=== PATIENT | female | born 1935 | race Caucasian/White ===

== ENCOUNTER 2021-06-17 08:21 | Outpatient (CLI) | payer MEDICARE, SELFPAY ==
--- NOTE | ~2021-06-17 | XR_ITS ---
XR chest 2V 06/17/2021 09:23 Indication: Shortness of breath with exertion Procedure: PA and lateral views of the chest Comparison: 06/11/2016 Findings: Calcified granuloma right lower lobe. There is atherosclerosis. The lungs are hyperinflated which is consistent with, but not diagnostic of chronic obstructive pulmonary disease. No focal air space disease, pulmonary edema, pleural effusion or suspected pneumothorax. Impression: 1: No acute cardiopulmonary disease. Reviewed, dictated and finalized at location A. Impression: 1: No acute cardiopulmonary disease.
--- NOTE | 2021-06-17 14:09 | WPDPFTINT ---
PFT Procedure Performed PFT Procedure Performed Plethysmography (Lung Vol) Diffusing Cap (DLCO) Flow Vol Loop Spirometry w/o Bronchodil PFT Interpretation This is a pulmonary function test with spirometry, plethysmography and diffusing capacity. The test was performed and results interpreted in accordance with the 2019 and 2005 ATS/ERS Task Force guidelines respectively using the Global Lung Function Initiative-2012 reference equations. Patient demonstrated good effort and cooperation. Reproducibility criteria were met. The quality of the spirometry maneuver was Grade B. Findings: Spirometry: The contour the inspiratory and expiratory flow tracing are normal. The FVC is 2.55 L, 98% predicted. The FEV1 is 1.90 L, 98% predicted. The FEV1: FVC ratio 74%. Plethysmography: The total lung capacity is 5.66 L, 105% predicted. The functional residual capacity is 3.36 L, 107% predicted. The residual volume is 2.78, 107% predicted. Diffusion capacity: The diffusion capacity unadjusted for hemoglobin and carboxyhemoglobin is 15.0, 76% predicted. The diffusing capacity adjusted for alveolar volume is 3.37, 85% predicted. Impression: The spirometry is normal without evidence of an obstructive abnormality. The lung volumes are normal. The diffusing capacity is normal. There are no prior studies for comparison
== END 2021-06-17 08:22 | disposition home or self-care (01) ==
PROVIDERS: PCP Internal Medicine; Visit Provider Nurse Practitioner
DX: R06.00 Dyspnea, unspecified (principal); R06.02 Shortness of breath
CPT/HCPCS: 71046; 94375; 94726; 94729

== ENCOUNTER 2022-01-24 10:22 | Emergency (ER) | payer MEDICARE, SELFPAY ==
--- NOTE | ~2022-01-24 | XR_ITS ---
XR chest 2V 01/24/2022 10:56 Indication: Cough. Flu. Procedure: 2 view chest Comparison: 06/17/2021 Findings: Heart size normal. Calcified granuloma present in the right lower lobe. There is bibasilar atelectasis. No focal pneumonia, edema, pleural effusion or pneumothorax. There is atherosclerosis an d ectasia of the aorta. Impression: 1: No acute cardiopulmonary disease. Reviewed, dictated and finalized at location A. Impression: 1: No acute cardiopulmonary disease.
[2022-01-24 10:33] VITALS: BP 177/93; PULSE 71; RESP 18; TEMP 36.4; O2SAT 99
--- NOTE | 2022-01-24 10:33 | ED.URI ---
HPI - URI/Sore Throat General Chief Complaint: Upper Respiratory Infection Stated Complaint: Coughing Time Seen by Provider: 01/24/22 10:23 Source: patient Mode of arrival: ambulatory Limitations: no limitations History of Present Illness HPI Narrative: Mr. Carmichael is a 86-year-old female patient presenting to clinic today with complaints of productive cough since Tuesday morning. She reports that she is also feeling weak. Has coughing congestion bringing up yellow phlegm. She denies being a smoker. She denies any history of COPD or asthma. States that she just got her COVID booster and influenza vaccine 2 weeks ago. She does feel short of breath at times MD elicited complaint: sore throat and nasal congestion Related Data Home Medications Medication Instructions Recorded Confirmed magnesium oxide 250 mg PO DAILY 05/26/21 01/24/22 calcium carbonate 600 mg-vitamin 1 tablet PO DAILY 12/02/21 01/24/22 D3 20 mcg (800 unit) chewable tablet (Caltrate 600 plus D) [id number] tablet 1 tablet PO DAILY 12/02/21 01/24/22 Allergies Allergy/AdvReac Type Severity Reaction Status Date / Time amlodipine AdvReac Rash Verified 01/24/22 10:24 Review of Systems Review of Systems: Pertinent positives per HPI. Patient denies any fever, chills, rash, headache, visual changes, dizziness, shortness of breath, chest pain, palpitations, nausea, vomiting, diarrhea, constipation, abdominal pain, or any urinary issues. [facility] Past Medical History Medical History Chronic GERD Surgical History Surgical History History of appendectomy Hx of tonsillectomy Family History Family History Father Alcohol abuse Mother Diabetes mellitus Hypertension Social History Social History Smoking status: Never smoker Alcohol intake: current Drinks per week: 1 Alcohol use details: [place] Substance use: never Substance use type: does not use Gender identity (if verbalized by the patient): Female Agree to blood products: Yes Comments At the time of my signature, I reviewed and agree with the nursing past medical, surgical, social, and family history. There is no relevant family history pertinent to the patient complaint. Exam Narrative: General: Well-developed, well nourished, in no apparent distress Head: Normocephalic, atraumatic Eyes: Pupils equally round and reactive to light bilaterally, EOM intact, sclera and conjunctive clear, no discharge, lids normal Ears: TMs intact and clear, ear canals clear, no drainage, grossly hearing normal. Nose: Nares patent, no discharge, no inflammation, no sinus tenderness. Mouth: Oral pharynx without lesions or masses, good dentition, MMM. Neck: Supple, trachea midline, no enlargement of anterior or posterior cervical nodes, no thyroid masses or goiter palpable. Cardio: Regular rate and rhythm, s1 and s2 normal, no murmur appreciated. Resp: expiratory wheezing over the right posterior lung hardin, no rhonchi, rales, or rubs Course Course Emergency Course: Portions of this record may have been created with voice recognition software. Level of Care: Express Care Visit Vital Signs Vital signs: Vital Signs Temperature 36.4 C 01/24/22 10:33 Pulse Rate 71 01/24/22 10:33 Respiratory Rate 18 01/24/22 10:33 Blood Pressure 177/93 H 01/24/22 10:33 Pulse Oximetry 99 01/24/22 10:33 Oxygen Delivery Room Air 01/24/22 10:33 Temperature 36.4 C 01/24/22 10:33 Pulse Rate 71 01/24/22 10:33 Respiratory Rate 18 01/24/22 10:33 Blood Pressure 177/93 H 01/24/22 10:33 Pulse Oximetry 99 01/24/22 10:33 Oxygen Delivery Room Air 01/24/22 10:33 Vital signs reviewed
== END 2022-01-24 11:14 | disposition home or self-care (01) ==
PROVIDERS: Emergency Provider Nurse Practitioner Family; PCP Internal Medicine
DX: J10.1 Influenza due to other identified influenza virus with other respiratory manifestations (principal); J40 Bronchitis, not specified as acute or chronic; Z20.822 Contact with and (suspected) exposure to COVID-19; K21.9 Gastro-esophageal reflux disease without esophagitis
CPT/HCPCS: 71046; 87426; 87804; 99213; C9803; G0463

== ENCOUNTER 2022-05-27 08:57 | Inpatient (IN) | payer MEDICARE, SELFPAY ==
[2022-05-27] VITALS (22 sets, daily range): BP systolic 148–196; BP diastolic 86–132; PULSE 79–134; RESP 14–24; TEMP 36.8–37.2; O2SAT 93–98; BMI 25.1
--- NOTE | ~2022-05-27 | US_ITS ---
EXAMINATION: US thyroid DATE: 05/27/2022 15:57 INDICATION: Goiter. TECHNIQUE: Multiple ultrasound images of the thyroid were obtained. COMPARISON: None. FINDINGS: The right thyroid lobe measures 4.9 x 2.0 x 2.5 cm. The left thyroid lobe measures 4.1 x 1.4 x 1.6 c m. The thyroid demonstrates heterogeneous echogenicity. Vascularity is normal. In the right thyroid lobe, there is a 2.7 cm solid, hypoechoic, wider than tall nodule with smooth margin without echogeni c foci (TI-RADS TR4). IMPRESSION: 1. Right thyroid nodule. Consider ultrasound-guided fine-needle aspiration if indicated given the pat ient's age. Reviewed, dictated and finalized at location A. IOLOGY PHYSICIAN ASSISTANT IMPRESSION: 1. Right thyroid nodule. Consider ultrasound-guided fine-needle aspiration if i ndicated given the patient's age.
--- NOTE | ~2022-05-27 | MR_ITS ---
EXAMINATION: MR brain/brain stem wo con DATE: 05/27/2022 15:38 INDICATION: Cerebrovascular accident. TECHNIQUE: Magnetic resonance imaging (MRI) of the brain and brainstem was performed without intraven ous contrast. COMPARISON: Head CT 05/27/2022 FINDINGS: There are acute infarcts in the left cerebellum, left side of the rosalio, occipital lobes, an d right thalamus. There is no intracranial hemorrhage or abnormal mass lesion. There are scattered ar eas of nonspecific increased T2-weighted signal intensity in the cerebral white matter. The ventricle s are normal in size. There is mild mucosal thickening in the ethmoid sinuses. There are likely muir es of ocular lens replacement surgeries. The mastoid air cells are normal. IMPRESSION: 1. Acute infarcts involving the left cerebellum, rosalio, occipital lobes, and right thalamus. 2. Moderate nonspecific cerebral white matter disease, which likely represents chronic small vessel i schemic disease. Reviewed, dictated and finalized at location A. IFIED PATHOLOGY ASSISTANT IMPRESSION: 1. Acute infarcts involving the left cerebellum, rosalio, occipital lobes, and rig ht thalamus. 2. Moderate nonspecific cerebral white matter disease, which likely represents chronic small vessel ischemic disease.
--- NOTE | ~2022-05-27 | CT_ITS ---
EXAMINATION: CT brain wo con DATE: 05/27/2022 09:38 INDICATION: Altered mental status TECHNIQUE: Computed tomography (CT) of the head was performed without intravenous contrast. The dose- length product was 605.33 mGy-cm. Automated exposure control and iterative reconstruction technique w ere employed. COMPARISON: None FINDINGS: There is a right occipital lobe infarction, age indeterminate. Consider correlation with MR I. Generalized atrophy. There are scattered moderate periventricular and subcortical white matter guerda nges, most likely related to small vessel ischemic disease (microangiopathy). No ventriculomegaly or midline shift. There is intracranial atherosclerosis. No acute intracranial hemorrhage, mass or signi ficant mass effect. Small chronic left cerebellar infarction. Paranasal sinuses and mastoids are pneu matized. No depressed skull fractures. IMPRESSION: 1. Age-indeterminate right occipital lobe infarction. Consider correlation with MRI. 2: Chronic left cerebellar infarction. 3: Chronic age-related findings. Reviewed, dictated and finalized at location L. ICAL ETCH OPERATOR
--- NOTE | ~2022-05-27 | CT_ITS ---
EXAMINATION: CTA brain carotid DATE: 05/27/2022 10:11 INDICATION: Occipital infarct. TECHNIQUE: Computed tomographic angiography (CTA) of the head was performed with 100 mL Omnipaque-350 intravenous contrast. CTA of the neck was performed with intravenous contrast. Automated exposure co ntrol and iterative reconstruction technique were employed. The dose-length product was 1041.85 mGy-c m. Maximum intensity projection and volume rendered 3D-reconstructions were created by the technCHEQROOMi st on a separate workstation. COMPARISON: Head CT 05/27/2022, chest CT 11/08/2005 FINDINGS: HEAD CTA: There is a small old infarct in left cerebellum. There is an infarct in right occipital lob e. There are scattered areas of low attenuation in the cerebral white matter. There is no intracrania l hemorrhage or abnormal mass lesion. The ventricles are normal in size. There is mucosal thickening in the paranasal sinuses. There are likely changes of ocular lens replacement surgeries. The mastoid air cells are normal. Left vertebral artery is dominant. There is no significant stenosis of basilar artery or the posterior cerebral arteries. There is no significant stenosis of the intracranial inter nal carotid arteries or anterior or middle cerebral arteries. Anterior communicating artery is normal . There is no aneurysm. The posterior communicating arteries are normal. NECK CTA: There is mild scarring at the lung apices. There are nodules in the thyroid measuring up to 1.9 cm. There are no pathologically enlarged lymph nodes. There is moderate stenosis of proximal lef t vertebral artery. There is plaque in the proximal internal carotid arteries. There is 0% stenosis o f the proximal right internal carotid artery relative to normal distal artery lumen diameter (NASCET criteria). There is 0% stenosis of the proximal left internal carotid artery relative to normal dista l artery lumen diameter. There is mild cervical spondylosis. IMPRESSION: 1. Infarct in right occipital lobe, likely acute or subacute. 2. 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 3. Moderate nonspecific cerebral white matter disease, which likely represents chronic small vessel i schemic disease. 4. No aneurysm or significant intracranial arterial stenosis. 5. 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 6. 0% stenosis of the proximal internal carotid arteries relative to normal distal artery lumen diame ters (NASCET criteria). 7. Multinodular goiter with worsening from 11/08/2005. Given the patient's age, further evaluation wit h ultrasound may not be needed. Reviewed, dictated and finalized at location A. EO EQUIPMENT INSTALLER IMPRESSION: 1. Infarct in right occipital lobe, likely acute or subacute. 2. 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 3. Moderate nonspecific cerebral white matter disease, which likely represents chronic small vessel ischemic disease. 4. No aneurysm or significant intracranial arterial stenosis. 5. 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 6. 0% stenosis of the proximal internal carotid arteries relative to normal dis deidra artery lumen diameters (NASCET criteria). 7. Multinodular goiter with worsening from 11/08/2005. Given the patient's age, further evaluation with ultrasound may not be needed.
--- NOTE | 2022-05-27 09:09 | ECG_ITS ---
Measurements Intervals [place] Rate: 124 P: NM: 0 QRS: 16 QRSD: 99 T: 253 QT: 262 QTc: 377 Interpretive Statements ATRIAL FIBRILLATION WITH RAPID VENTRICULAR RESPONSE ST-T WAVE ABNORMALITY IN ANTEROLAT/INF LEADS- CONSIDER ISCHEMIA ABNORMAL ECG NO PREVIOUS ECG AVAILABLE FOR COMPARISON Electronically Signed On 05-27-2022 9:47:38 HAND CLOTH FOLDER by Tushar Brooks D.O.
[2022-05-27 09:15] LABS: Glucose Point of Care 119 mg/dl (65-105)
--- NOTE | 2022-05-27 09:18 | ED.GENADULT ---
HPI - General Adult General Chief complaint: Altered Mental Status Stated complaint: was altered; Afib? HR up 140s Time Seen by Provider: 05/27/22 09:02 History of Present Illness HPI narrative: 86-year-old female presenting to the emergency department via EMS for evaluation of feeling off. Patient states that she went to bed last night and felt normal. Patient reports he normally gets up at 6 AM but woke up at 8 AM. Patient was talking to a family member and they felt that she was confused so they called EMS. Patient does report that she does have some vision changes and feels confused. Patient denies any chest pain or shortness of breath. Patient denies any nausea vomiting or diarrhea. Patient was found to be in atrial fibrillation and has no prior history of atrial fibrillation. Patient has no prior history of stroke or [place]. Patient does have history of hypertension and high cholesterol. Related Data Home Medications Medication Instructions Recorded Confirmed magnesium oxide 250 mg PO DAILY 05/26/21 05/27/22 calcium carbonate 600 mg-vitamin 1 tablet PO DAILY 12/02/21 05/27/22 D3 20 mcg (800 unit) chewable tablet (Caltrate 600 plus D) [id number]-wvyuoruf-[id number] tablet 1 tablet PO DAILY 12/02/21 05/27/22 atorvastatin 80 mg tablet 80 mg PO DAILY 05/27/22 05/27/22 methylcellulose (laxative) 500 mg 500 mg PO DAILY PRN Constipation 05/27/22 05/27/22 tablet (Citrucel) Allergies Allergy/AdvReac Type Severity Reaction Status Date / Time amlodipine AdvReac Rash Verified 05/27/22 09:42 Review of Systems Review of Systems: CONSTITUTIONAL: Denies fever, chills, or sweats. EYES: Denies visual changes, redness, or discharge. ENT: Denies rhinorrhea, congestion, sore throat, or otalgia. CARDIOVASCULAR: Denies chest pain, palpitations, or edema. RESPIRATORY: Denies cough or dyspnea. GASTROINTESTINAL: Denies abdominal pain, nausea, vomiting, or diarrhea. GENITOURINARY: Denies dysuria or hematuria. SKIN: Denies rash or itching. MUSCULOSKELETAL: Denies back pain, joint pain, or myalgia. NEUROLOGIC: See HPI [facility] Past Medical History Medical History (Updated 05/27/22 @ 19:21 by Darren Marti MD) Chronic GERD Goiter Hyperlipidemia Hypertension Occipital infarction Surgical History Surgical History (Updated 05/27/22 @ 14:37 by Kateryna Flores NP) H/O cataract extraction History of appendectomy History of carpal tunnel release Hx of tonsillectomy Family History Family History (Updated 05/27/22 @ 14:38 by Kateryna Flores NP) Father Alcohol abuse Heart disease Mother Diabetes mellitus Hypertension Social History Social History (Updated 05/27/22 @ 14:38 by Kateryna Flores NP) Social History: the patient is and lives home alone. She is pretty functional does not use any assisted devices such as a cane or walker. She walks independently. 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 Code status full code Smoking status: Never smoker Alcohol intake: current Drinks per week: 9 Alcohol use details: [place] Substance use: never Substance use type: does not use Lack of Transportation: No Lack of Food: Never True Current Housing: I Have Housing Concerned About Future Housing: No Difficulty Paying Gas/Electric Bills: No Difficulty Paying for Meds: No Currently Unemployed: No Education: High School Diploma/GED Difficulty w/ Childcare or Family Care: No Gender identity (if verbalized by the patient): Female Spiritual care concerns: No (christianity) Agree to blood products: Yes Exam Narrative: APPEARANCE: Well appearing, no pain, no distress, well-nourished. HEAD: normocephalic, atraumatic. EYES: PERRLA/EOMI, conjunctivae clear. NOSE: Normal no drainage NECK: Supple. No adenopathy, no masses. RESPIRATORY: Airway patent, respirations nonlabored. Clear to auscultation bilaterally, no rales, rhonchi, wheezing. CARDIOVASCULA
[2022-05-27 09:40] LABS: Basophils Absolute Auto 0.1 K/mm3 (0.0-0.1); Basophils Percent Auto 0.5 % (0.2-1.2); Eosinophils Percent Auto 0.2 % (0-4.4); Hematocrit 47.1 % (37.0-47.0); Hemoglobin 15.9 g/dL (12.0-15.0); Immature Granulocyte Absolute 0.06 K/mm3 (0.00-0.031); Immature Granulocyte Percent A 0.6 % (0-0.5); Lymphocytes Percent Auto 9.3 % (18.3-44.2); Mean Corpuscular HGB Conc 33.8 g/dl (32-36); Mean Corpuscular Hemoglobin 32.2 pg (26-34); Mean Corpuscular Volume 95.3 fl (80-100); Mean Platelet Volume 9.9 fl (7.4-10.4); Monocytes Absolute Auto 0.9 K/mm3 (0.1-0.6); Neutrophils Absolute Auto 8.8 K/mm3 (1.3-6.7); Neutrophils Percent Auto 81.4 % (45.5-73.1); Platelet Count Result 169 k/mm3 (150-375); Red Blood Count 4.94 M/mm3 (4.2-5.4); Red Cell Distribution Width 12.6 % (11.5-14.5); White Blood Count 10.8 K/mm3 (4.5-10.0)
[2022-05-27] MEDS: METOPROLOL TARTRATE INJ 5 MG/5 ML VIAL IV PUSH (09:41)
[2022-05-27 09:51] LABS: Alanine Aminotransferase 34 U/L (6-35); Albumin Level 4.9 g/dL (3.5-5.1); Alkaline Phosphatase 76 U/L (38-126); Anion Gap 12 mmol/L (8-16); Aspartate Amino Transferase 42 U/L (14-36); Bilirubin,Total 2.1 mg/dL (0.2-1.3); Blood Urea Nitrogen 15 mg/dL (7-17); Calcium 9.5 mg/dL (8.4-10.2); Carbon Dioxide 21 mmol/L (22-30); Chloride 97 mmol/L (98-107); Estimated CRCL calculation 54 ml/min; Estimated Glomerular Filt Rate > 60; Glucose 125 mg/dL (65-110); Potassium 4.2 mmol/L (3.4-5.0); Sodium 130 mmol/L (137-145)
[2022-05-27 09:52] LABS: INR 1.1; Prothrombin Time 13.7 Seconds (11.1-14.7)
[2022-05-27 09:53] LABS: Partial Thromboplastin Time 28.2 SECONDS (22.3-36.8)
[2022-05-27 10:03] LABS: Troponin I 0.015 ng/mL (0.000-0.034)
[2022-05-27 10:03] LABS: Appearance Urine Clear (Clear); Bacteria Urine None Seen /hpf; Bilirubin Urine 1+ (Negative); Blood Urine Negative (Negative); Color Urine Dark Yellow (Yellow); Glucose Urine UA Negative (Negative); Granular Casts Urine Present /lpf; Ketones Urine 1+ mg/dL (Negative); Leukocyte Esterase Ur Negative LEU/UL (Negative); Mucus Urine Present /lpf; Nitrate Urine Negative (Negative); Protein Urine 1+ mg/dL (Negative); Squamous Epithelial Cell Urine None seen /hpf (Few); WBC Urine 0-5 /hpf; pH Urine 5.5 (5.0-9.0)
[2022-05-27 10:06] LABS: Add Urine Microscopic? YES
[2022-05-27 10:23] LABS: Influenza A QL RT-PCR Negative (Negative); Influenza B QL RT-PCR Negative (Negative); RSV RNA, RT-PCR Negative (Negative); SARS-CoV-2 RNA PCR Negative
--- NOTE | 2022-05-27 10:23 | PC.NURSE ---
Pt voided 75 ml on bed rodriguez.
[2022-05-27] MEDS: METOPROLOL TARTRATE 12.5 MG TABLET PO (11:26)
--- NOTE | 2022-05-27 12:15 | ADMGEN ---
This patient, Lenora Vann, was admitted to IMU Room 205-01. Patient/family oriented to hospital policies and general routines including ID bracelet, bed and alarms, visiting hours, pain management, procedures, bathroom and other care routines, personal items, smoking policy, room service/diet, and visiting hours. Information on how to activate the Rapid Response Team has been discussed. Patient/Family are encouraged to report perceived risks to care and to ask questions if they do not understand what they are told or what they should do.
[2022-05-27] MEDS: ASPIRIN 81 MG CHEWABLE TABLET 324 MG PO (13:03)
--- NOTE | 2022-05-27 13:32 | PM.IMHP ---
H&P: HPI History of Present Illness Date/Time: 05/27/22 13:32 Chief Complaint: Altered mental status Narrative: this is an 86-year-old female patient who lives home alone in her own home. She has a history of hypertension and hyperlipidemia. She has no prior history of any CVAs or irregular heart rate. Her son stated that she was having difficulty with her left eye peripheral vision today and that she was leaning to her left side. The patient was also having difficulty remembering names of common ordinary every day things. When I assessed her she was able to answer questions for me. She was able to recognize 2 of her children. However she was having difficulty with the date and The name of the current president. Her temperature is 99? and her heart rate was 123. Her initial blood pressure was 196/113. The patient tells me that she typically takes 100 of metoprolol in the morning and 50 at night. The patient is unsure if she took her medications today. Her EKG was read as atrial fibrillation with rapid ventricular response with a heart rate of 124. Her white count was noted to be 10.8. H&H 15.9 and 47.1. Sodium is 130. Her blood sugars 125. Total bilirubin 2.1. The patient had 1+ protein and 1+ ketones and 1+ urine bilirubin in her urine however her urine was negative for any infectious process. The patient was found to be negative for influenza A/B RSV and COVID. Head and neck CTA was read as the following1. Infarct in right occipital lobe, likely acute or subacute. 2. 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 3. Moderate nonspecific cerebral white matter disease, which likely represents chronic small vessel ischemic disease. 4. No aneurysm or significant intracranial arterial stenosis. 5. 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 6. 0% stenosis of the proximal internal carotid arteries relative to normal distal artery lumen diameters (NASCET criteria). 7. Multinodular goiter with worsening from 11/08/2005. Given the patient's age, further evaluation with ultrasound may not be needed. the patient was ordered aspirin and p.o. metoprolol. Neurology has been consulted. The patient is being admitted to inpatient status on the date of service of 05/27/2022. Review of Systems Review of Systems: She HPI All systems reviewed & are unremarkable except as noted in HPI and below Constitutional: Constitutional: Reports as per HPI and Reports no additional constitutional complaints Eyes: Eyes: Reports as per HPI and Reports no additional eye complaints ENT: Reports system reviewed and no additional complaints, except as documented and Reports Normal hearing present Cardiovascular: Cardiovascular: Reports no additional cardiovascular complaints Respiratory: Respiratory: Reports no additional respiratory complaints and Reports no additional respiratory complaints Gastrointestinal: Gastrointestinal: Reports as per HPI and Reports no additional gastrointestinal complaints Musculoskeletal: Musculoskeletal: Reports no additional musculoskeletal complaints Integumentary/Breasts: Skin/Breast: Reports system reviewed and no additional complaints, except as docu and Reports as per HPI Neurologic: Reports system reviewed and no additional complaints, except as documented, Reports as per HPI and Reports Normal hearing present Psychiatric: Psychiatric: Reports no additional psychiatric complaints and Reports as per HPI Endocrine: Endocrine: Reports no additional endocrine complaints Hematologic/Lymphatic: Hematologic/Lymphatic: Reports no additional hematologic/lymphatic complaints Allergic/Immunologic: Allergic/Immunologic: Reports no additional allergic/immunologic complaints PMF Past Medical History Medical History (Updated 05/27/22 @ 14:58 by Kateryna Flores NP) Chronic GERD Goiter Hyperlipidemia Hypertension Occipital infarction Surgical History Surgical History (Updated 05/27/22 @ 14:37 by Kateryna Flores NP) H
[2022-05-27] MEDS: hydrALAZINE HCL 20 MG/ML VIAL 10 MG IV PUSH ×2 (15:00→17:47)
--- NOTE | 2022-05-27 15:27 | PC.NURSE ---
patient removed from monitor to go to MRI without nurse.
--- NOTE | 2022-05-27 16:32 | PCSTNOTE ---
Please refer to the Bedside Swallow Evaluation in the EMR. Please note, silent aspiration cannot be ruled out at bedside.
[2022-05-27] MEDS: METOPROLOL TARTRATE 50 MG TAB PO (21:04)
[2022-05-28] VITALS (15 sets, daily range): BP systolic 155–165; BP diastolic 71–110; PULSE 77–108; RESP 16–20; TEMP 35.8–36.9; O2SAT 65–98
--- NOTE | 2022-05-28 | ECHO_ITS ---
Patient Info Name: Lenora Vann Age: 86 years : 1935 Gender: Female Ht: 66 in Wt: 159 lbs BSA: 1.84 m2 HR: 109 bpm BP: 169 / 94 mmHg Heart Rhythm: Sinus Rhythm Technical Quality: Fair Exam Date: 05/28/2022 9:15 AM Exam Location: [facility] Patient Status: Inpatient Admit Date: 05/27/2022 Staff Ordering Physician: Kateryna Flores NP Fur Dry Cleaner: Ele Loya RDCS Attending Provider: Char Brandon MD Referring Physician: Mark SMART; Exam Type: CA echo doppler w bubble study Study Info Indications - CVA Complete two-dimensional, color flow and Doppler transthoracic echocardiogram is performed with agitated saline. Contrast/Agitated Saline Contrast/Ag. Saline: Agitated Saline Amount: 20.00 ml Administered By: Ele Loya RDCS Existing IV Access: Yes IV Access Condition: patent with no signs of infiltration Summary 1. Concentric left ventricular hypertrophy with vigorous systolic contractility. 2. Significant biatrial dilation. 3. Small amount of mitral tricuspid and pulmonic valve regurgitation. 4. Normal sinus rhythm during this exam. 5. Agitated saline contrast injection demonstrates no intracardiac shunt. Left Ventricle Left ventricular chamber dimension is normal. Left ventricular systolic function is hyperdynamic, estimated at >70%. There is moderate concentric increased left ventricular wall thickness. The left ventricular diastolic function is grade I diastolic dysfunction. Right Ventricle Right ventricular chamber dimension is normal. Left Atria Left atrial chamber dimension is severely enlarged. Right Atria Right atrial chamber dimension is severely enlarged. Atrial Septum Intact interatrial septum visualized by agitated saline imaging. Aortic Valve The aortic valve is trileaflet. There is mild aortic valve sclerosis. Pulmonic Valve The pulmonic valve is normal. There is trace pulmonic regurgitation. Mitral Valve The mitral valve has normal leaflets. There is mild mitral valve regurgitation. Tricuspid Valve The tricuspid valve leaflets are normal. There is mild tricuspid valve regurgitation. Pericardium/Pleural The pericardium appears normal. Aorta The aortic root size at the sinus of Valsalva is normal. Left Ventricular Outflow Tract Name Value Normal LVOT 2D LVOT Diameter 1.9 cm LVOT Doppler LVOT Peak Gradient 2 mmHg LVOT Mean Gradient 1 mmHg LVOT VTI 14 cm LVOT VTI/AV VTI Ratio 0.7 LVOT Stroke Volume 40 ml LVOT CO 2.7 l/min LVOT CI 1.5 l/min/m2 Pulmonic Valve Name Value Normal RVOT Doppler
[2022-05-28 04:30] LABS: Basophils Absolute Auto 0.1 K/mm3 (0.0-0.1); Basophils Percent Auto 0.6 % (0.2-1.2); Eosinophils Absolute Auto 0.1 K/mm3 (0-0.3); Hematocrit 41.2 % (37.0-47.0); Hemoglobin 14.1 g/dL (12.0-15.0); Immature Granulocyte Absolute 0.05 K/mm3 (0.00-0.031); Immature Granulocyte Percent A 0.5 % (0-0.5); Lymphocytes Absolute Auto 1.05 K/mm3 (0.9-3.2); Lymphocytes Percent Auto 10.6 % (18.3-44.2); Mean Corpuscular HGB Conc 34.2 g/dl (32-36); Mean Corpuscular Volume 93.6 fl (80-100); Monocytes Absolute Auto 1.1 K/mm3 (0.1-0.6); Monocytes Percent Auto 10.6 % (2.6-8.5); Neutrophils Absolute Auto 7.6 K/mm3 (1.3-6.7); Neutrophils Percent Auto 76.7 % (45.5-73.1); Platelet Count Result 160 k/mm3 (150-375); Red Cell Distribution Width 12.5 % (11.5-14.5); White Blood Count 9.9 K/mm3 (4.5-10.0)
[2022-05-28 04:42] LABS: Lactic Acid Reflex 0.9 mmol/L (0.7-2.0)
[2022-05-28 04:43] LABS: Alanine Aminotransferase 29 U/L (6-35); Alkaline Phosphatase 64 U/L (38-126); Anion Gap 8 mmol/L (8-16); Aspartate Amino Transferase 33 U/L (14-36); Bilirubin,Total 2.1 mg/dL (0.2-1.3); Blood Urea Nitrogen 15 mg/dL (7-17); Calcium 8.7 mg/dL (8.4-10.2); Carbon Dioxide 24 mmol/L (22-30); Chloride 100 mmol/L (98-107); Estimated CRCL calculation 54 ml/min; Estimated Glomerular Filt Rate > 60; Glucose 102 mg/dL (65-110); Lipase 49 U/L (23-300); Potassium 3.5 mmol/L (3.4-5.0); Sodium 132 mmol/L (137-145)
--- NOTE | 2022-05-28 07:56 | ECG_ITS ---
Measurements Intervals [place] Rate: 76 P: IA: 0 QRS: 13 QRSD: 104 T: -1 QT: 416 QTc: 470 Interpretive Statements ATRIAL FIBRILLATION BORDERLINE ST-T WAVE ABNORMALITY- DIFFUSE LEADS ABNORMAL ECG COMPARED TO ECG 05/27/2022 09:10:35 HEART RATE HAS DECREASED ST-T WAVE ABNORMALITY HAS IMPROVED Electronically Signed On 05-28-2022 11:58:25 [employer] PIPE OFFBEARER by Tushar Brooks D.O.
[2022-05-28] MEDS: ASPIRIN 325 MG ENTERIC TABLET PO (08:38)
[2022-05-28] MEDS: METOPROLOL TARTRATE 50 MG TAB 100 MG PO (08:38)
[2022-05-28] MEDS: OPTI-GEN TAB 1 TABLET PO (08:38)
--- NOTE | 2022-05-28 10:08 | WPDNEURCNPN ---
Assessment and Plan Assessment and plan (1) Acute stroke due to ischemia: Code(s): I63.9 - Cerebral infarction, unspecified Status: Acute (2) Atrial fibrillation: Qualifiers: Atrial fibrillation type: unspecified Qualified Code(s): I48.91 - Unspecified atrial fibrillation Code(s): I48.91 - Unspecified atrial fibrillation Status: Acute (3) Hyperlipidemia: Qualifiers: Hyperlipidemia type: unspecified Qualified Code(s): E78.5 - Hyperlipidemia, unspecified Code(s): E78.5 - Hyperlipidemia, unspecified Status: Acute (4) Hypertension: Qualifiers: Hypertension type: essential hypertension Qualified Code(s): I10 - Essential (primary) hypertension Code(s): I10 - Essential (primary) hypertension Status: Acute Plan Lenora Vann is a 86 year old female with a history of hypertension and hyperlipidemia presenting due to vision changes. MRI brain showed multifocal infarcts, suggestive of cardioembolic etiology of stroke. She was found to be in atrial fibrillation on presentation. - Will need to start anticoagulation - Eliquis 5mg BID - Continue Lipitor 80mg daily - Surface echocardiogram is pending Consult date: 05/28/22 Reason for consult: Acute stroke HPI: Lenora Vann is a 86 year old female with a history of hypertension and hyperlipidemia presenting due to vision changes. She woke up few hours later than usual on 05/27 which is atypical for her. Patient was talking to her son and he felt she was confused. She was also having problems with her left eye peripheral vison and leaning to her right side, as well as difficulty remembering names of common things. When she presented to the emergency department, she had blood pressure in the 180s-190s systolic. Her EKG revealed atrial fibrillation with RVR. She was given metoprolol and aspirin. CT head showed subacute/acute infarct in the right occpital lob, old infarct in the left cerebellum. 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 She was rate controlled and subsequently admitted for stroke evaluation. MRI brain showed acute infarcts involving the left cerebellum, rosalio, occipital lobes, and right thalamus. Patient feels well this morning, but reporting some numbness in the left arm. Son is at bedside and feels that she is not completely back to her normal self -- (doesn't remember year). Review of Systems Constitutional: Constitutional: Reports no additional constitutional complaints Eyes: Eyes: Reports blurry vision ENT: Reports system reviewed and no additional complaints, except as documented Cardiovascular: Cardiovascular: Reports no additional cardiovascular complaints Respiratory: Respiratory: Reports no additional respiratory complaints Gastrointestinal: Gastrointestinal: Reports no additional gastrointestinal complaints Genitourinary: Genitourinary: Reports no additional female genitourinary complaints Musculoskeletal: Musculoskeletal: Reports no additional musculoskeletal complaints Integumentary/Breasts: Skin/Breast: Reports system reviewed and no additional complaints, except as docu Neurologic: Reports as per HPI Psychiatric: Psychiatric: Reports confusion PMFSH Past Medical History Medical History Chronic GERD Goiter Hyperlipidemia Hypertension Occipital infarction Surgical History Surgical History H/O cataract extraction History of appendectomy History of carpal tunnel release Hx of tonsillectomy Family History Family History Father Alcohol abuse Heart disease Mother Diabetes mellitus Hypertension Social History Social History Social Histo
[2022-05-28] MEDS: LOSARTAN POTASSIUM 100 MG TABLET PO (11:32)
[2022-05-28] MEDS: ATORVASTATIN 40 MG TABLET 80 MG PO (11:32)
[2022-05-28] MEDS: FAMOTIDINE 20 MG TABLET PO (11:32)
--- NOTE | 2022-05-28 12:26 | PM.IMPN ---
Progress Note: A&P Assessment and Plan (1) Occipital infarction: Code(s): I63.9 - Cerebral infarction, unspecified Status: Acute Assessment and Plan: Patient presents with altered mental status. She was found to have CVA by CT brain. MRI brain showing acute infarcts involving the left cerebellum, rosalio, bilateral occipital lobes and right thalamus. CTA of the head and neck shows 0% stenosis of the proximal internal carotid arteries. 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 Patient also found to have new onset atrial fibrillation. 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 Neurology was consulted and appreciate their input. Patient was started on aspirin but this is been changed to Eliquis. Echo has been ordered and is pending. Continue PT and OT. Speech therapy also to evaluate treat. (2) Atrial fibrillation: Qualifiers: Atrial fibrillation type: unspecified Qualified Code(s): I48.91 - Unspecified atrial fibrillation Code(s): I48.91 - Unspecified atrial fibrillation Status: Acute Assessment and Plan: Patient found to have new onset Afib of unknown duration. She is asymptomatic. Her heart rate is controlled with metoprolol. Echo has been ordered and is pending. TSH normal. [id number] score 6. Cardiology has been consulted. EKG on admission showing ST depression mostly in the anterior lead but seen lateral and inferior as well with HR at 124. Repeat EKG showing improvement in these ST changes. Underlying ischemia causing the AFib. Trop climbed to 0.08 but felt more likely related to the RVR. Echo pending. (3) Hypertension: Qualifiers: Hypertension type: essential hypertension Qualified Code(s): I10 - Essential (primary) hypertension Code(s): I10 - Essential (primary) hypertension Status: Acute Assessment and Plan: Patient's blood pressure was reviewed on 3/3 Blood pressure remains elevated but will allow for permissive HTN given recent CVA. Will continue current medications. (4) Hyperlipidemia: Qualifiers: Hyperlipidemia type: unspecified Qualified Code(s): E78.5 - Hyperlipidemia, unspecified Code(s): E78.5 - Hyperlipidemia, unspecified Status: Acute Assessment and Plan: LFTs normal except elevated Bili to 2.1. Probably [place]. Continue with high-dose atorvastatin (5) Chronic GERD: Code(s): K21.9 - Gastro-esophageal reflux disease without esophagitis Status: Acute Assessment and Plan: Stable. Continue with famotidine (6) Goiter: Code(s): E04.9 - Nontoxic goiter, unspecified Status: Acute Assessment and Plan: CT scan showing MNG. Thyroid ultrasound showing right thyroid nodule. Hold of on FNA at this time. TSH normal. Subjective Date/time seen: 05/28/22 12:27 Interval history: 86yo female with HTN here for altered mental status and found to have 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 She feels 'great'. Left hand feels numb and has coordination problems with the Left hand. She denies CP or SOB. No palpitations. Speech is better but not back to normal per family in the room. No odynophagia or dysphagia. Exam Narrative: AF 96.4 161/97 85 18 95% ra Gen - NARD Chest - few bibasilar crackles, nml RR CV - irregularly irregular; Tele showing AFib with controlled rate. Abd - Soft, NT/ND, Positive BS Ext - No pedal edema Neuro - Alert and oriented x3 (not year). left hand apraxia. Mild dysarthria but speech is mostly clear. CN 2-12 intact. Dysmetria involving LUE and LLE. Nonfocal exam. Psych - Nml mood and affect Skin - Warm and dry Objective Data Vital Signs Vital Signs: Vital Signs - 24 hr 05/27/22 13:54 05/27/22 12:30 05/27/22 16:00 Temperature Pulse Rate 79 Respiratory Rate Blood Pressure Pulse Oximetry Oxygen Delivery Room Air Room Air
[2022-05-28] MEDS: hydrALAZINE HCL 20 MG/ML VIAL 10 MG IV PUSH (13:31)
--- NOTE | 2022-05-28 14:07 | PCOTNOTE ---
Attempted to see pt. for occupational therapy evaluation. 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 Following
--- NOTE | 2022-05-28 14:20 | PM.CNCAR ---
Assessment and Plan Assessment and plan (1) Atrial fibrillation: Qualifiers: Atrial fibrillation type: unspecified Qualified Code(s): I48.91 - Unspecified atrial fibrillation Code(s): I48.91 - Unspecified atrial fibrillation Status: Acute Plan This is an 86-year-old lady with hypertension no previous history of atrial fibrillation presenting with what appears to be cardioembolic CVA and found to be in atrial fibrillation for the 1st time. She has reasonably well-controlled heart rate on her standard dose of metoprolol. She has been anticoagulated by the neurology operations consultant using apixaban. Echocardiogram has been performed and is pending my opportunity to read that exam little later this afternoon. This time there are no additional cardiac recommendations to make as she is otherwise Um see asymptomatic of her atrial fibrillation. After discharge I will see this lady in the office and consider the option of attempting a cardioversion down the line. Obviously that would be contraindicated at this time the setting of AFib of unknown chronicity and acute embolic CVA. Lang Nicholas MD [facility] History of Present Illness History of Present Illness Consult date/time: 05/28/22 14:20 Reason For Visit: CVA,Atrial Fib Narrative: This is an 86-year-old woman I am seeing at the request of the hospitalist because of atrial fibrillation. She is unknown to me prior to this encounter and according to the records, the patient and her family his she has no previous history of atrial fibrillation or of any other cardiac problems. She is a lady that has a history of hypertension and dyslipidemia and [place] her medical care [place]. She came to the hospital emergency room this morning because she was feeling disoriented apparently she had some problems with blurring of her vision and unsteadiness of her gait and deviating to the left. The only symptom she remembers at this time is feeling disoriented. Her evaluation thus far appears to show evidence of small strokes occurring in a multi vascular distribution and she has been found to be in atrial fibrillation. She is not aware of any symptoms of this in the way of palpitations shortness of breath chest pain orthopnea or PND. She normally takes metoprolol for rate control she did not tapped take her usual metoprolol dosage this morning and when she got here her pulse rate was in the 125 range. She has been given her metoprolol dosage and pulse rate is now in the low 90s. She appears to be very comfortable and is talking with her family when I entered the room to see her. A neurology consult and has already seen her this morning and started her on anticoagulation with apixaban 5 mg twice daily. An echocardiogram has been ordered has yet to be interpreted. Her normal medical regimen consists of atorvastatin, famotidine, losartan, metoprolol and magnesium oxide. Review of Systems Constitutional: Constitutional: Reports no additional constitutional complaints Eyes: Eyes: Reports as per HPI and Reports blurry vision ENT: Reports system reviewed and no additional complaints, except as documented Cardiovascular: Cardiovascular: Reports no additional cardiovascular complaints Respiratory: Respiratory: Reports dyspnea on exertion Gastrointestinal: Gastrointestinal: Reports no additional gastrointestinal complaints Musculoskeletal: Musculoskeletal: Reports back pain Integumentary/Breasts: Skin/Breast: Reports system reviewed and no additional complaints, except as docu Neurologic: Reports as per HPI and Reports confusion Endocrine: Endocrine: Reports no additional endocrine complaints Hematologic/Lymphatic: Hematologic/Lymphatic: Reports no additional hematologic/lymphatic complaints Allergic/Immunologic: Allergic/Immunologic: Reports no additional allergic/immunologic complaints [facility] Past Medical History Medical History (Reviewed 05/28/22 @ 12:37 by Beatriz
[2022-05-28] MEDS: APIXABAN 5 MG TABLET PO (20:20)
[2022-05-28] MEDS: METOPROLOL TARTRATE 50 MG TAB PO (20:21)
[2022-05-29] VITALS (18 sets, daily range): BP systolic 125–172; BP diastolic 74–95; PULSE 74–113; RESP 14–20; TEMP 36.2–36.3; O2SAT 94–99
[2022-05-29] MEDS: hydrALAZINE HCL 20 MG/ML VIAL 10 MG IV PUSH ×2 (05:48→17:22)
[2022-05-29] MEDS: METOPROLOL TARTRATE 50 MG TAB 100 MG PO (08:01)
[2022-05-29] MEDS: LOSARTAN POTASSIUM 100 MG TABLET PO (08:01)
[2022-05-29] MEDS: ATORVASTATIN 40 MG TABLET 80 MG PO (08:02)
[2022-05-29] MEDS: FAMOTIDINE 20 MG TABLET PO (08:02)
[2022-05-29] MEDS: OPTI-GEN TAB 1 TABLET PO (08:02)
[2022-05-29] MEDS: APIXABAN 5 MG TABLET PO ×2 (08:02→20:17)
--- NOTE | 2022-05-29 10:19 | PM.PNCARD ---
Progress Note: A&P Assessment and Plan (1) Atrial fibrillation: Qualifiers: Atrial fibrillation type: unspecified Qualified Code(s): I48.91 - Unspecified atrial fibrillation Code(s): I48.91 - Unspecified atrial fibrillation Status: Acute Assessment and Plan: On Eliquis and metoprolol. Continue PT OT. No changes to regimen today Echocardiogram: ? 1. Concentric left ventricular hypertrophy with vigorous systolic contractility. ? 2. Significant biatrial dilation. ? 3. Small amount of mitral tricuspid and pulmonic valve regurgitation. ? 4. Normal sinus rhythm during this exam. ? 5. Agitated saline contrast injection demonstrates no intracardiac shunt. Subjective Date/time seen: 05/29/22 10:19 Interval history: 86yo female with HTN here for altered mental status and found to have 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 Date of service 05/29/2022: Feels okay. No chest pain or shortness of breath. Heart rate is controlled. Review of Systems Constitutional: Constitutional: Reports no additional constitutional complaints Eyes: Eyes: Reports as per HPI and Reports blurry vision ENT: Reports system reviewed and no additional complaints, except as documented Cardiovascular: Cardiovascular: Reports no additional cardiovascular complaints and Reports dyspnea on exertion Respiratory: Respiratory: Reports dyspnea on exertion Gastrointestinal: Gastrointestinal: Reports no additional gastrointestinal complaints Musculoskeletal: Musculoskeletal: Reports back pain Integumentary/Breasts: Skin/Breast: Reports system reviewed and no additional complaints, except as docu Neurologic: Reports as per HPI and Reports confusion Psychiatric: Psychiatric: Reports confusion Endocrine: Endocrine: Reports no additional endocrine complaints Hematologic/Lymphatic: Hematologic/Lymphatic: Reports no additional hematologic/lymphatic complaints Allergic/Immunologic: Allergic/Immunologic: Reports no additional allergic/immunologic complaints Exam Const: General: comfortable, no acute distress and confusion Orientation/consciousness: confusion Other: Pleasant talkative elderly lady no distress of any kind HENMT: Mouth: Yes moist mucous membranes Eyes: Sclera: sclerae normal Pupils: Equal, round and reactive pupils present Neck: Neck: supple and no JVD Other: Carotid impulses are intact bilaterally there are no bruits audible over the neck Resp: Effort & Inspection: normal respiratory effort Auscultation: clear to auscultation bilaterally Cardio: Rate: regular rate Rhythm: abnormal rhythm irregularly irregular Other: No audible murmur or gallop PMI is not displaced GI: Auscultation: normal bowel sounds Skin: General skin exam: normal color Neuro: General: confusion Cranial nerves: Yes Equal, round and reactive pupils present Other: Alert and oriented x3 Extrem: Other: No edema warm and well perfused Objective Data Vital Signs Vital Signs: Vital Signs - 24 hr 05/28/22 12:00 05/28/22 12:00 05/28/22 12:00 Temperature 36.3 C L Pulse Rate 92 83 Respiratory Rate 16 Blood Pressure 165/110 H Pulse Oximetry 98 Oxygen Delivery Room Air 05/28/22 14:00 05/28/22 16:00 05/28/22 16:00 Temperature 36.7 C Pulse Rate 92 107 H Respiratory Rate 20 Blood Pressure 165/71 H Pulse Oximetry 97 Oxygen Delivery Room Air 05/28/22 16:00 05/28/22 18:00 05/28/22 19:45 Temperature 36.2 C L Pulse Rate 86 93 85 Respiratory Rate 16 Blood Pressure 155/86 H Pulse Oximetry 95 Oxygen Delivery 05/28/22 20:21 05/28/22 20:00 05/28/22 20:00 Temperature Pulse Rate 108 H 90 Respiratory Rate Blood Pressure Pulse Oximetry Oxygen Delivery Room Air 05/28/22 22:00 05/29/22 00:00 05/29/22 00:00 Temperature Pulse Rate 77 77 Respiratory Rate Blood Pressure Pulse Oximetry Oxygen Delivery Room Air
--- NOTE | 2022-05-29 16:47 | PM.IMPN ---
Progress Note: A&P Assessment and Plan (1) Occipital infarction: Code(s): I63.9 - Cerebral infarction, unspecified Status: Acute Assessment and Plan: Patient presents with altered mental status. She was found to have CVA by CT brain. MRI brain showing acute infarcts involving the left cerebellum, rosalio, bilateral occipital lobes and right thalamus. CTA of the head and neck shows 0% stenosis of the proximal internal carotid arteries. 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 Patient also found to have new onset atrial fibrillation. 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 Neurology was consulted and appreciate their input. Patient was started on aspirin but this was changed to Eliquis. Echo showing EF 70% with Grade I diastolic dysfunction. Continue speech, PT and OT. Placement being considered. (2) Atrial fibrillation: Qualifiers: Atrial fibrillation type: unspecified Qualified Code(s): I48.91 - Unspecified atrial fibrillation Code(s): I48.91 - Unspecified atrial fibrillation Status: Acute Assessment and Plan: Patient found to have new onset Afib of unknown duration. She is asymptomatic. Her heart rate is controlled with metoprolol. Echo as mentioned above. TSH normal. [id number] score 6. Cardiology following. EKG on admission showing ST depression mostly in the anterior lead but seen lateral and inferior as well with HR at 124. Repeat EKG showing improvement in these ST changes. Underlying ischemia causing the AFib. Trop climbed to 0.08 but felt more likely related to the RVR. (3) Hypertension: Qualifiers: Hypertension type: essential hypertension Qualified Code(s): I10 - Essential (primary) hypertension Code(s): I10 - Essential (primary) hypertension Status: Acute Assessment and Plan: Patient's blood pressure was reviewed on 3/ Blood pressure remains elevated at times but will allow for permissive HTN given recent CVA. Will continue current medications. (4) Hyperlipidemia: Qualifiers: Hyperlipidemia type: unspecified Qualified Code(s): E78.5 - Hyperlipidemia, unspecified Code(s): E78.5 - Hyperlipidemia, unspecified Status: Acute Assessment and Plan: LFTs normal except elevated Bili to 2.1. Probably [place]. Continue with high-dose atorvastatin (5) Chronic GERD: Code(s): K21.9 - Gastro-esophageal reflux disease without esophagitis Status: Acute Assessment and Plan: Stable. Continue with famotidine (6) Goiter: Code(s): E04.9 - Nontoxic goiter, unspecified Status: Acute Assessment and Plan: CT scan showing MNG. Thyroid ultrasound showing right thyroid nodule. Hold of on FNA at this time. TSH normal. Subjective Date/time seen: 05/29/22 16:47 Interval history: 86yo female with HTN here for altered mental status and found to have 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 No complaints today. No CP or SOB. Walking to the bathroom but not out into the halls. Still with unsteady gait. Exam Narrative: AF 97.4 172/90 86 16 99% ra Gen - NARD Chest - CTA bilaterally. nml RR CV - irregularly irregular; Tele showing AFib with controlled rate. Abd - Soft, NT/ND, Positive BS Ext - No pedal edema Neuro - Left hand apraxia but finger to nose better. Mild dysarthria but improved. Left heel to isaac also improved. Psych - Nml mood and affect Skin - Warm and dry Objective Data Vital Signs Vital Signs: Vital Signs - 24 hr 05/28/22 18:00 05/28/22 19:45 05/28/22 20:21 Temperature 97.2 F L Pulse Rate 93 85 108 H Respiratory Rate 16 Blood Pressure 155/86 H Pulse Oximetry 95 Oxygen Delivery 05/28/22 20:00 05/28/22 20:00 05/28/22 22:00 Temperature Pulse Rate 90 77 Respiratory Rate Blood Pressure Pulse Oximetry Oxygen Delivery Room Air 03
[2022-05-29] MEDS: METOPROLOL TARTRATE 50 MG TAB PO (20:18)
[2022-05-30] VITALS: PULSE 79
[2022-05-30 04:00] VITALS: BP 155/96; PULSE 83; PULSE 84; RESP 18; TEMP 36.1; O2SAT 98
--- NOTE | 2022-05-30 05:12 | PC.NURSE ---
Assumed care from Marleny NOVA.
[2022-05-30 06:00] VITALS: PULSE 82
[2022-05-30 08:00] VITALS: BP 144/86; PULSE 102; PULSE 106; RESP 16; TEMP 36.8; O2SAT 98
--- NOTE | 2022-05-30 08:38 | PM.PNCARD ---
Progress Note: A&P Assessment and Plan (1) Atrial fibrillation: Qualifiers: Atrial fibrillation type: unspecified Qualified Code(s): I48.91 - Unspecified atrial fibrillation Code(s): I48.91 - Unspecified atrial fibrillation Status: Acute Assessment and Plan: On Eliquis and metoprolol. Continue PT OT. Continue current regimen. transfer off of IMU. DC planning Echocardiogram: ? 1. Concentric left ventricular hypertrophy with vigorous systolic contractility. ? 2. Significant biatrial dilation. ? 3. Small amount of mitral tricuspid and pulmonic valve regurgitation. ? 4. Normal sinus rhythm during this exam. ? 5. Agitated saline contrast injection demonstrates no intracardiac shunt. 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 Date of service 05/29/2022: Feels okay. No chest pain or shortness of breath. Heart rate is controlled. date of service 05/30/2022: Feels okay. No chest pain or shortness of breath. Review of Systems Constitutional: Constitutional: Reports no additional constitutional complaints Eyes: Eyes: Reports as per HPI and Reports blurry vision ENT: Reports system reviewed and no additional complaints, except as documented Cardiovascular: Cardiovascular: Reports no additional cardiovascular complaints and Reports dyspnea on exertion Respiratory: Respiratory: Reports dyspnea on exertion Gastrointestinal: Gastrointestinal: Reports no additional gastrointestinal complaints Musculoskeletal: Musculoskeletal: Reports back pain Integumentary/Breasts: Skin/Breast: Reports system reviewed and no additional complaints, except as docu Neurologic: Reports as per HPI and Reports confusion Psychiatric: Psychiatric: Reports confusion Endocrine: Endocrine: Reports no additional endocrine complaints Hematologic/Lymphatic: Hematologic/Lymphatic: Reports no additional hematologic/lymphatic complaints Allergic/Immunologic: Allergic/Immunologic: Reports no additional allergic/immunologic complaints Exam Const: General: comfortable, no acute distress and confusion Orientation/consciousness: confusion Other: Pleasant talkative elderly lady no distress of any kind HENMT: Mouth: Yes moist mucous membranes Eyes: Sclera: sclerae normal Pupils: Equal, round and reactive pupils present Neck: Neck: supple and no JVD Other: Carotid impulses are intact bilaterally there are no bruits audible over the neck Resp: Effort & Inspection: normal respiratory effort Auscultation: clear to auscultation bilaterally Cardio: Rate: regular rate Rhythm: abnormal rhythm irregularly irregular Other: No audible murmur or gallop PMI is not displaced GI: Auscultation: normal bowel sounds Skin: General skin exam: normal color Neuro: General: confusion Cranial nerves: Yes Equal, round and reactive pupils present Other: Alert and oriented x3 Extrem: Other: No edema warm and well perfused Objective Data Vital Signs Vital Signs: Vital Signs - 24 hr 05/29/22 10:00 05/29/22 10:53 05/29/22 12:00 Temperature Pulse Rate 74 93 Respiratory Rate Blood Pressure Pulse Oximetry 96 Oxygen Delivery Room Air 05/29/22 12:00 05/29/22 14:00 05/29/22 16:19 Temperature 36.3 C L Pulse Rate 86 88 86 Respiratory Rate 14 Blood Pressure 125/94 H Pulse Oximetry 94 Oxygen Delivery 05/29/22 16:00 05/29/22 18:00 05/29/22 20:18 Temperature 36.3 C L Pulse Rate 88 87 113 H Respiratory Rate 16 Blood Pressure 172/90 H Pulse Oximetry 99 Oxygen Delivery 05/29/22 21:36 05/29/22 20:00 05/29/22 20:00 Temperature 36.2 C L Pulse Rate 99 104 H Respiratory Rate 20 Blood Pressure 160/86 H Pulse Oximetry 96 Oxygen Delivery Room Air 05/30/22 00:00 05/30/22 04:00 05/30/22 04:00 Temperature
[2022-05-30 09:30] VITALS: PULSE 105
[2022-05-30] MEDS: METOPROLOL TARTRATE 50 MG TAB 100 MG PO (09:30)
[2022-05-30] MEDS: OPTI-GEN TAB 1 TABLET PO (09:30)
[2022-05-30] MEDS: LOSARTAN POTASSIUM 100 MG TABLET PO (09:31)
[2022-05-30] MEDS: ATORVASTATIN 40 MG TABLET 80 MG PO (09:31)
[2022-05-30] MEDS: APIXABAN 5 MG TABLET PO (09:31)
[2022-05-30] MEDS: FAMOTIDINE 20 MG TABLET PO (09:31)
[2022-05-30 12:00] VITALS: PULSE 83
[2022-05-30 13:21] LABS: EDCOVIDSCREEN Negative (Negative)
--- NOTE | 2022-05-30 13:40 | PM.DS ---
DS: Admitting Diagnosis Discharge Date 05/30/22 Admitting Diagnosis Altered mental status DS: Discharge Diagnosis Discharge Diagnosis (1) Occipital infarction: Code(s): I63.9 - Cerebral infarction, unspecified Status: Acute (2) Atrial fibrillation: Qualifiers: Atrial fibrillation type: unspecified Qualified Code(s): I48.91 - Unspecified atrial fibrillation Code(s): I48.91 - Unspecified atrial fibrillation Status: Acute (3) Hypertension: Qualifiers: Hypertension type: essential hypertension Qualified Code(s): I10 - Essential (primary) hypertension Code(s): I10 - Essential (primary) hypertension Status: Acute (4) Hyperlipidemia: Qualifiers: Hyperlipidemia type: unspecified Qualified Code(s): E78.5 - Hyperlipidemia, unspecified Code(s): E78.5 - Hyperlipidemia, unspecified Status: Acute (5) Chronic GERD: Code(s): K21.9 - Gastro-esophageal reflux disease without esophagitis Status: Acute (6) Goiter: Code(s): E04.9 - Nontoxic goiter, unspecified Status: Acute DS: Summary Hospital Course Reason for hospitalization: 86yo female with HTN here for altered mental status and found to have 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 Please see H&P for details. Hospital Course: Patient presents with altered mental status. She was found to have CVA by CT brain. MRI brain showing acute infarcts involving the left cerebellum, rosalio, bilateral occipital lobes and right thalamus.? CTA of the head and neck shows 0% stenosis of the proximal internal carotid arteries.? There is moderate stenosis of the proximal left vertebral artery.? Patient also found to have new onset atrial fibrillation.? 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 Neurology was consulted and appreciate their input.? Patient was started on aspirin but this was changed to Eliquis. No ASA given the increased risk of bleeding and that she has no significant atherosclerotic disease. Continued on high dose Lipitor. Echo showing EF 70% with Grade I diastolic dysfunction.? She worked with speech, PT and OT. Regarding the new onset Atrial fibrillation: She is asymptomatic. Her heart rate was controlled with metoprolol. TSH normal. [id number] score 6. Cardiology followed. EKG on admission showing ST depression mostly in the anterior lead but seen lateral and inferior as well with HR at 124. Repeat EKG showing improvement in these ST changes. Consider underlying ischemia causing the AFib. Trop climbed to 0.08 but felt more likely related to the RVR. Blood pressure was elevated at times but we allowed for permissive HTN given recent CVA. CT scan showing MNG. Thyroid ultrasound showing right thyroid nodule. We held off on FNA at this time. TSH was normal. Patient overall did well. She was able to be discharged to the rehab facility on 05/30/2022. Discharge instructions discussed. Status at Discharge Cognitive/behavioral status at discharge: Stable. Time Spent with Patient Time attestation: Total time spent providing and/or coordinating discharge services: 35 minutes Time spent: Greater than 30 minutes Exam Narrative: AF 144/86 83 16 98% ra Gen - NARD Chest - CTA bilaterally. nml RR CV - irregularly irregular; Tele showing AFib with controlled rate. Abd - Soft, NT/ND, Positive BS Ext - No pedal edema Neuro - Left hand apraxia better. Left dysmetria improved from admission. Dysarthria improved. Psych - Nml mood and affect Skin - Warm and dry DS: Data Data Completed and Pending Labs on day of discharge: Labs from last 24 hours 05/30/22 12:48 SARS-CoV-2 IgG/IgM Ag?Rapid Negative Discharge Plan Discharge Attending physician on discharge: Matty Shaw Consulting providers: Beatriz Saavedra ; Pily Fam Discharging Clinician: Matty Shaw Anticipated Discharge Date/Parish
== END 2022-05-30 15:15 | DRG 66 ==
LOC: ANHED 11:05 → ANHIMU 11:52
PROVIDERS: Nurse Practitioner; Admitting Provider Family Medicine; Emergency Provider Emergency Medicine; PCP Internal Medicine; Visit Provider Internal Medicine
DX: I63.49 Cerebral infarction due to embolism of other cerebral artery (principal); R41.82 Altered mental status, unspecified; H53.9 Unspecified visual disturbance; I48.91 Unspecified atrial fibrillation; I10 Essential (primary) hypertension; E78.5 Hyperlipidemia, unspecified; K21.9 Gastro-esophageal reflux disease without esophagitis; E04.9 Nontoxic goiter, unspecified; Z20.822 Contact with and (suspected) exposure to COVID-19; Z98.42 Cataract extraction status, left eye; Z98.41 Cataract extraction status, right eye; Z90.49 Acquired absence of other specified parts of digestive tract
CPT/HCPCS: 36415; 51701; 70450; 70496; 70498; 70551; 76536; 80053; 81001; 82948; 83605; 83690; 83735; 84443; 84484; 85025; 85610; 85730; 87426; 87637; 92610; 93005; 93306; 96375; 97112; 97161; 97166; 97535; 99285; A9270; C9803; J0360; Q9967

== ENCOUNTER 2024-06-11 10:22 | Emergency (ER) | payer MEDICARE, SELFPAY ==
--- NOTE | ~2024-06-11 | CT_ITS ---
EXAMINATION: CT brain wo con DATE: 06/11/2024 12:17 INDICATION: Trauma TECHNIQUE: Computed tomography (CT) of the head was performed without intravenous contrast. Sagittal and coronal reconstructions were performed. The mA was adjusted according to patient size. Iterative reconstruction technique was employed. The dose-length product was 681.00 mGy-cm. COMPARISON: head CT dated 05/27/2022 FINDINGS: No fracture. There is a unilateral intraventricular hemorrhage throughout the right lateral ventricle . The occipital and temporal horns of the right lateral ventricle appear slightly enlarged relative t o the contralateral left lateral ventricle which could be seen with entrapment. No evident subarachno id, subdural or definitive intraparenchymal hemorrhage. 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 No acute infarction or abn ormal extra axial fluid collection. There is moderate scattered white matter hypoattenuation consiste nt with chronic small vessel ischemic disease. Symmetric prominence of the sulci consistent with mil d age-appropriate diffuse cerebral volume loss. No mass/mass effect. Changes of bilateral intraocula r lens replacement. The orbits and mastoid air cells are normal. Mild mucosal thickening the posterio r left ethmoid sinus. IMPRESSION: 1. Large intraventricular hemorrhage within the right lateral ventricle with mild asymmetric enlargem ent of the occipital and temporal joints which could be seen with early entrapment. Dr. Kennedy disc ussed these findings with Dr. Marti at 12:18 PM. 2. 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 3. Age-related changes including mild diffuse volume loss and moderate scattered white matter hypoatt enuation consistent with chronic small vessel ischemic disease. Reviewed, dictated and finalized at location A. IMPRESSION: 1. Large intraventricular hemorrhage within the right lateral ventricle with mi ld asymmetric enlargement of the occipital and temporal joints which could be s een with early entrapment. Dr. Kennedy discussed these findings with Dr. Nnamdi bey at 12:18 PM. 2. 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 3. Age-related changes including mild diffuse volume loss and moderate scattere d white matter hypoattenuation consistent with chronic small vessel ischemic di sease.
--- NOTE | ~2024-06-11 | CT_ITS ---
EXAMINATION: CT cervical spine wo con DATE: 06/11/2024 12:20 INDICATION: Trauma with head injury TECHNIQUE: Computed tomography (CT) of the cervical spine was performed without intravenous contrast. The dose-length product was 145.66 mGy-cm. COMPARISON: 05/27/2022 FINDINGS: Alignment is normal. Vertebral body heights are normal. No acute fracture. 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 Mild disc height loss at C3-C4 through C5-C6. Disc bulges contributing to minimal to mild central canal stenosis at C2-C3 through C6-C7. There is also bilateral severe face t osteoarthritis at a few levels in the mid cervical spine. This contributes to moderate neural from stenosis on the right at C3-C4 and on the left at C4-C5. Mild neural from stenosis at a few additiona l cervical neural foramina. Chronic heterogeneous multinodular goiter. Mild left and moderate right a pical pleural-parenchymal scarring. IMPRESSION: 1. Mild cervical spondylosis. No acute osseous abnormality. 2. Chronic multinodular goiter. Reviewed, dictated and finalized at location A.
--- NOTE | ~2024-06-11 | XR_ITS ---
XR abdomen/kub 1V Ordering provider: Darren Marti MD History: . fever . Comparison: None. FINDINGS: BOWEL: Nonobstructive bowel gas pattern. ORGANOMEGALY: None. SIGNIFICANT PATHOLOGIC CALCIFICATIONS: None. OTHER: No free air is seen under the diaphragm. Degenerative changes of the spine. Bilateral hip severe osteoarthritic changes. IMPRESSION: NO ACUTE ABDOMINAL FINDINGS. Reviewed, dictated and finalized at location A.
[2024-06-11 10:42] VITALS: BP 188/105; PULSE 109; RESP 20; TEMP 38.3; O2SAT 99
--- NOTE | 2024-06-11 11:49 | PC.NURSE ---
Per family, Staff at facility states patient had 2 falls last night and called family and told them about the falls, but did not mention patient being lethargic adn disoriented.
[2024-06-11] MEDS: Please add drug allergy info to patient profile. 1 EACH XX (12:19)
--- NOTE | 2024-06-11 12:27 | ED.GENADULT ---
HPI - General Adult General Chief complaint: Fever Stated complaint: fall Time Seen by Provider: 06/11/24 12:02 History of Present Illness HPI narrative: 88-year-old female presented emergency department for evaluation for altered mental status and fever. Patient reportedly had a fall last night at her facility. Patient is normally a and O times 2-3 at baseline and is able have a conversation but upon arrival emergency department patient is somnolent and slow to respond to questions. CT scan does show a right ventricular hemorrhage with mild enlargement of the ventricle with some suspect entrapment Related Data Home Medications ?Medication ?Instructions ?Recorded ?Confirmed ?Last Taken ?Type magnesium oxide 250 mg PO DAILY 05/26/21 02/16/24 05/26/22 09:00 History calcium 600 mg (as carbonate)-vit 1 tablet PO DAILY 12/02/21 02/16/24 05/26/22 09:00 History D3 20 mcg (800 unit) chewable tablet (Caltrate plus D) afmktdsfwsiz-faacexrv-wzsulg tablet 1 tablet PO DAILY 12/02/21 02/16/24 05/26/22 09:00 History methylcellulose (laxative) 500 mg 500 mg PO DAILY PRN Constipation 05/27/22 02/16/24 Unknown History tablet (Citrucel) Allergies Allergy/AdvReac Type Severity Reaction Status Date / Time amlodipine AdvReac Rash Verified 06/11/24 12:14 Review of Systems Review of Systems: All systems reviewed & are unremarkable except as noted in HPI and below [facility] Past Medical History Medical History (Updated 06/11/24 @ 22:00 by Darren Marti MD) Acute stroke due to ischemia Goiter Atrial fibrillation Cerumen impaction Hyperlipidemia Chronic GERD Hypertension Surgical History Surgical History History of carpal tunnel release H/O cataract extraction Hx of tonsillectomy History of appendectomy Family History Family History Father Alcohol abuse Heart disease Mother Diabetes mellitus Hypertension Social History Social History Social History: the patient is and lives home alone. She is pretty functional does not use any assisted devices such as a cane or walker. She walks independently. 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 Code status full code Smoking status: Never smoker Alcohol intake: former Drinks per week: 9 Alcohol use details: [place] Substance use: never Substance use type: does not use Lack of Transportation: No Lack of Food: Never True Current Housing: I Have Housing Concerned About Future Housing: No Difficulty Paying Gas/Electric Bills: No Difficulty Paying for Meds: No Currently Unemployed: No Education: High School Diploma/GED Difficulty w/ Childcare or Family Care: No Gender identity (if verbalized by the patient): Female Spiritual care concerns: No (religious) Agree to blood products: Yes Exam Narrative: APPEARANCE: Ill-appearing. HEAD: normocephalic, atraumatic. EYES: PERRLA/EOMI, conjunctivae clear. NOSE: Normal no drainage EARS:TMS clear with good light reflex. THROAT: Pharynx clear, no exudate. NECK: Supple. No adenopathy, no masses. RESPIRATORY: Airway patent, respirations nonlabored. Clear to auscultation bilaterally, no rales, rhonchi, wheezing. CARDIOVASCULAR: Regular rate and rhythm without murmurs rubs or gallops. ABDOMINAL: Soft, nontender, nondistended, normal bowel sounds MUSCULOSKELETAL: Moves all extremities. Strength/ROM intact, No edema, No calf tenderness. NEURO: Awake but slow to respond, not commanding for movement left lower extremity does have squeeze for left upper extremity SKIN: Warm, dry. Normal Color . Course Vital Signs Vital signs: Vital Signs Temperature 101.0 F H 06/11/24 10:42 Pulse Rate 109 H 06/11/24 10:42 Respiratory Rate 20 06/11/24 10:42 Blood Pressure 188/105 H 06/11/24 10:42 Pulse Oximetry 99 06/11/24 10:42 Temperature 101.0 F H 06/11/24 10:42 Pulse Rate 91 06/11/24 12:44 Respiratory Rate 22 H 06/11/24 12:41 Blood Pressure 191/88 H 06/11/24 12:41 Pulse Oximetry 99 06/11/24 12:41 Medical Decision Making MDM Narrative Medical decision making narrative: 88-year-old female presenting to emergency department for evaluation after having a fall last night presenting to the emergency department with fever and altered mental status. Head CT was concerning for a large right-sided intraventricular hemorrhage with mild enlargement of the ventricle. Patient was hypertensive on arrival with a systolic blood pressure of 188/105. Patient was febrile with temperature of 100.1?. Patient was treated with a dose of IV Lopressor to initially help with hypertension, patient was also treated with rectal Tylenol for the fever and patient was started on Kcentra due to her being on Xarelto for atrial fibrillation. Patient is typically alert and orientated and does live in an independent living. Family was not willing to rule out surgical intervention so they were comfortable with a patient being transferred to [facility] emergency department. I did discuss the case with Dr. Savage per neurosurgery and he will see the patient as consult. I also spoke to the ED physician and patient was up to his transfer. Patient will be transferred by flight. Differential Diagnosis Differential Diagnosis: Sodium patella, subarachnoid hemorrhage, intraventricular bleed, COVID, RSV influenza, UTI pneumonia Vital Signs Vital Signs: Vital Signs Temperature 101.0 F H 06/11/24 10:42 Pulse Rate 109 H 06/11/24 10:42 Respiratory Rate 20 06/11/24 10:42 Blood Pressure 188/105 H 06/11/24 10:42 Pulse Oximetry 99 06/11/24 10:42 Temperature 101.0 F H 06/11/24 10:42 Pulse Rate 91 06/11/24 12:44 Respiratory Rate 22 H 06/11/24 12:41 Blood Pressure 191/88 H 06/11/24 12:41 Pulse Oximetry 99 06/11/24 12:41 Lab Data Lab results reviewed: Yes I reviewed the patient's lab results. 06/11/24 12:36 06/11/24 12:36 Labs: Lab Results 06/11/24 06/11/24 Range/Units 12:35 12:36 WBC 11.2 H (4.5-10.0) K/mm3 RBC 4.43 (4.2-5.4) M/mm3 Hgb 13.8 (12.0-15.0) g/dL Hct 41.2 (37.0-47.0) % MCV 93.0 (80-100) fl MCH 31.2 (26-34) pg MCHC 33.5 (32-36) g/dl RDW 13.1 (11.5-14.5) % Plt Count 184 (150-375) k/mm3 MPV 10.1 (7.4-10.4) fl Immature Gran % (Auto) 0.7 H (0-0.5) % Neut % (Auto) 94.0 H (45.5-73.1) % Lymph % (Auto) 3.0 L (18.3-44.2) % Gage % (Auto) 2.1 L (2.6-8.5) % Eos % (Auto) 0.0 (0-4.4) % Baso % (Auto) 0.2 (0.2-1.2) % Lymph # (Auto) 0.33 L (0.9-3.2) K/mm3 Gage # (Auto) 0.2 (0.1-0.6) K/mm3 Eos # (Auto) 0.0 (0-0.3) K/mm3 Baso # (Auto) 0.0 (0.0-0.1) K/mm3 Abs Immat Gran (auto) 0.08 H (0.00-0.031) K/mm3 Absolute Neuts (auto) 10.5 H (1.3-6.7) K/mm3 Absolute Nucleated RBC 0.000 (0.0-0.012) K/mm3 Nucleated RBC % 0.0 (0.0-0.2) % PT 23.3 H (11.1-14.7) Seconds INR 2.0 APTT 35.3 (22.3-36.8) Seconds Sodium 134 L (137-145) mmol/L Potassium 4.4 (3.4-5.0) mmol/L Chloride 95 L (98-107) mmol/L Carbon Dioxide 24 (22-30) mmol/L Anion Gap 15 H (4-12) mmol/L BUN 12 (7-17) mg/dL Creatinine 0.77 (0.7-1.0) mg/dL Estim Creat Clear Calc 41 ml/min Estimated GFR > 60 (59 - ) Glucose 154 H (65-110) mg/dL Lactic Acid 3.4 H (0.7-2.0) mmol/L Calcium 9.7 (8.4-10.2) mg/dL Total Bilirubin 1.3 (0.2-1.3) mg/dL AST 28 (14-36) U/L ALT 29 (6-35) U/L Alkaline Phosphatase 72 (38-126) U/L C-Reactive Protein < 0.5 (<1.0) mg/dL Total Protein 8.0 (6.3-8.2) g/dL Albumin 4.9 (3.5-5.1) g/dL Influenza A (RT-PCR) Negative (Negative) Influenza B (RT-PCR) Negative (Negative) RSV (RT-PCR) Negative (Negative) SARS-CoV-2 RNA (RT-PCR) Negative (Negative) Imaging Data Radiologist's impression: Impressions Head CT 06/11/24 12:19 IMPRESSION: 1. Large intraventricular hemorrhage within the right lateral ventricle with mild asymmetric enlargement of the occipital and temporal joints which could be seen with early entrapment. Dr. Kennedy discussed these findings with Dr. Marit at 12:18 PM. 2. 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 3. Age-related changes including mild diffuse volume loss and moderate scattered white matter hypoattenuation consistent with chronic small vessel ischemic disease. Cervical Spine CT 06/11/24 12:27 IMPRESSION: 1. Mild cervical spondylosis. No acute osseous abnormality. 2. Chronic multinodular goiter. Abdomen X-Ray 06/11/24 12:31 IMPRESSION: NO ACUTE ABDOMINAL FINDINGS. Critical Care Time Critical Care Time Critical Care Time: Yes Total Critical Care Time: 35 Discharge Plan Discharge Clinical Impression: Intraventricular hemorrhage Patient Disposition: Acute Care Hospital Condition: Critical Patient Language: [place] Citizen Prescriptions: No Action magnesium oxide 250 mg magnesium tablet 250 mg PO DAILY [id number]-hwauwegw-ienpgz Tablet 1 tablet PO DAILY Caltrate 600 plus D 600 mg-20 mcg (800 unit) tablet,chewable 1 tablet PO DAILY Citrucel 500 mg Tablet 500 mg PO DAILY PRN (Reason: Constipation) clonidine HCl 0.1 mg tablet See Rx Instructions .ROUTE .COMPLEX Qty: 270 1RF Dose Instruction: TAKE 1 TABLET BY MOUTH THREE TIMES A DAY Rx Instructions: TAKE 1 TABLET BY MOUTH THREE TIMES A DAY metoprolol tartrate 100 mg tablet See Rx Instructions .ROUTE .COMPLEX Qty: 180 1RF Dose Instruction: TAKE 1 TABLET TWICE A DAY IN THE MORNING AND EVENING Rx Instructions: TAKE 1 TABLET TWICE A DAY IN THE MORNING AND EVENING losartan 100 mg tablet See Rx Instructions .ROUTE .COMPLEX Qty: 90 1RF Dose Instruction: TAKE 1 TABLET DAILY Rx Instructions: TAKE 1 TABLET DAILY atorvastatin 80 mg tablet See Rx Instructions .ROUTE .COMPLEX Qty: 90 1RF Dose Instruction: TAKE 1 TABLET DAILY Rx Instructions: TAKE 1 TABLET DAILY famotidine 20 mg tablet 20 mg PO DAILY Qty: 90 1RF Xarelto 20 mg tablet See Rx Instructions .ROUTE .COMPLEX Qty: 90 1RF Dose Instruction: TAKE 1 TABLET BY MOUTH EVERY EVENING MUST ADMINISTER WITH EVENING MEAL Rx Instructions: TAKE 1 TABLET BY MOUTH EVERY EVENING MUST ADMINISTER WITH EVENING MEAL Follow-up/Referrals: Katey Craig APRN [Primary Care Provider] -
--- OUTSIDE RECORDS SUMMARY | 2024-06-11 12:28 | XMS_ITS | Continuity of Care Document ---
Author Name Auto Generated, Auto Generated Organization [facility] Support Name Relationship Address Phone Giovanni Vann Emergency Contact [address] [place] [address] Unavailable Giovanni Vann Son [address] [place] [address] Unavailable Pily Garcia Daughter Unknown Unavailable Starla Pimentel Daughter Unknown Unavailabl e Lenora Vann Self [address] [place] [address] Lenora Vann Statement Copy [address] [place] [address] Giovanni Vann Financial Responsible [employer] [address] [place] [address] Unavailable Pily Garcia Emergency Contact 2 Unknown Unava ilable SooKellee [id number] [address] [place] [address] Unavailable Margarito Starla Emergency Contact 3 Unknown Aurelia vailable Compa Pimentel Son-in-Law Unknown Unavailable Summary Purpose Consult/Referral Allergies, Adverse Reactions, Alerts Type Description/Agent Code Date Allergy Active Date Allergy Inactivated Date of Last Reaction Adverse Reactions Severity Status Comments Source of Information FDB Medic ation Ingre dient amlodipine Active Patien t History Medications No Known Medications Conditions/Problems Problem/Diagnosis Awareness of Diagnosis Code (ICD-10) Onset Date (Start Date) Resolution Date (End Date) Status Source Comments HEMIPLEGIA AND HEMIPARESIS FOLLOWING CEREBRAL INFARCTION AFFECTING LEFT NON-DOMINANT SIDE I69.354 06/24/19 23 Active Clive Nascimento I MUSCLE WEAKNESS (GENERALIZED) M62.81 06/24/19 23 Active Clive Nascimento I UNSPECIFIED LACK OF COORDINATION R27.9 06/03/19 23 Active Clive Nascimento I GASTRO-ESOPHAGEAL REFLUX DISEASE WITHOUT ESOPHAGITIS K21.9 05/31/19 23 Active Clive Nascimento I ESSENTIAL (PRIMARY) HYPERTENSION I10 05/31/19 23 Active Clive Nascimento I 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 05/31/19 23 Active Clive Nascimento I NONTOXIC MULTINODULAR GOITER E04.2 05/31/19 23 Active Clive Nascimento I MIXED HYPERLIPIDEMIA E78.2 0 23 Active Clive Nascimento I HYPOMAGNESEMIA E83.42 05/31/19 23 Active Clive Nascimento I SLOW TRANSIT CONSTIPATION K59.01 05/31/19 23 Active Clive Nascimento I UNSPECIFIED HEARING LOSS, UNSPECIFIED EAR H91.90 05/31/19 23 Active Clive Nascimento I PIG STICKER (CURRENT) USE OF ANTICOAGULANTS Z79.01 05/31/19 23 Active Clive Nascimento I PAROXYSMAL ATRIAL FIBRILLATION I48.0 05/28/19 23 Active Clive Nascimento I UNSPECIFIED ATRIAL FIBRILLATION I48.91 05/28/19 23 Active Clive Nascimento I OTHER SEQUELAE OF CEREBRAL INFARCTION I69.398 05/28/19 23 Active Clive Nascimento I UNQUALIFIED VISUAL LOSS, LEFT EYE, NORMAL VISION RIGHT EYE H54.62 05/28/19 23 Active Clive Nascimento I Procedures No Known Procedures
--- OUTSIDE RECORDS SUMMARY | 2024-06-11 12:28 | XMS_ITS | Encounter Summary ---
Author Organization [facility] Care Team Providers Care Director Of Mechanical Engineering Name Role Phone Clive Nascimento DO Primary Care Provider [phone] Raji Hernández MD Primary Care Provider [phone] Encounter Details Date Type Department Care Team (Latest Contact Info) Description 06/11/2016 Orders Only [facility] CLINCONV ProviderDarleen MD [address] [place] [id number] Social History Tobacco Use Types Packs/Day Years Used Date Smoking Tobacco: Never Assessed Comments Unknown Sex and Gender Information Value Date Recorded Sex Assigned at Not on file 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 Historical Provider [facility] LAZARA DAVILA Final Result documented in this encounter Visit Diagnoses Not on filedocumented in this encounter Care Teams Director Of Mechanical Engineering Relationship Specialty Start Date End Date Clive Nascimento DO PCP - General Internal Medicine 05/27/22 08/17/22 Raji Hernández MD PCP - General Family Practice 08/18/22 documented as of this encounter
--- OUTSIDE RECORDS SUMMARY | 2024-06-11 12:28 | XMS_ITS | Encounter Summary ---
Author Organization [facility] Facility Care Team Providers Care Director Trust Name Role Phone Clive Nascimento DO Primary Care Provider [phone] Raji Hernández MD Primary Care Provider [phone] Encounter Details Date Type Department Care Team (Latest Contact Info) Description 02/05/2016 Orders Only [facility] CLINCONV ProviderDarleen MD [address] [place] [id number] Social History Tobacco Use Types Packs/Day Years Used Date Smoking Tobacco: Never Assessed Comments Unknown Sex and Gender Information Value Date Recorded Sex Assigned at Not on file 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 Historical Provider Final Res ult documented in this encounter Visit Diagnoses Not on filedocumented in this encounter Care Teams Director Trust Relationship Specialty Start Date End Date Clive Nascimento DO PCP - General Internal Medicine 05/27/22 08/17/22 Raji Hernández MD PCP - General Family Practice 08/18/22 documented as of this encounter
--- OUTSIDE RECORDS SUMMARY | 2024-06-11 12:28 | XMS_ITS | Encounter Summary ---
Author Organization [facility] Facility Care Team Providers Care Electric Meter Reader Name Role Phone Clive Nascimento DO Primary Care Provider [phone] Raji Hernández MD Primary Care Provider [phone] Encounter Details Date Type Department Care Team (Latest Contact Info) Description 01/15/2017 Orders Only [facility] Provider, MD Darleen [address] [place] [address] Social History Tobacco Use Types Packs/Day Years Used Date Smoking Tobacco: Never Assessed Comments Unknown Sex and Gender Information Value Date Recorded Sex Assigned at Not on file Legal Sex Female 9:09 PM DENTAL INTERN Gender Identity Not on file Sexual Orientation Not on file documented as of this encounter Plan of Treatment Not on file documented as of this encounter Procedures Procedure Name Priority Date/Time Associated Diagnosis Comments SCAN - LABS 01/31/2017 12:00 AM DENTAL INTERN documented in this encounter Results * SCAN - LABS (01/31/2017 12:00 AM DENTAL INTERN) Narrative 01/31/2017 12:00 AM DENTAL INTERN Ordered by an unspecified provider. Historical Provider Final Res ult documented in this encounter Visit Diagnoses Not on filedocumented in this encounter Care Teams Electric Meter Reader Relationship Specialty Start Date End Date Clive Nascimento DO PCP - General Internal Medicine 05/27/22 08/17/22 Raji Hernández MD PCP - General Family Practice 08/18/22 documented as of this encounter
--- OUTSIDE RECORDS SUMMARY | 2024-06-11 12:28 | XMS_ITS | Referral Summary ---
Author Organization [facility] [place] [address] Address [address] [place] [address] Care Team Providers Care Boot Liner Maker Name Role Phone Raji Hernández MD Primary Care Provider [phone] Allergies No known active allergies Medications cloNIDine (CATAPRES) 0.1 mg tablet Take 1 tablet (0.1 mg total) by mouth 3 (three) times a day 3 Active atorvastatin (LIPITOR) 80 mg tablet 3 Active Xarelto 20 mg tablet TAKE 1 TABLET BY MOUTH EVERY DAY IN THE EVENING TAKE WITH AN EVENING MEAL 3 Active metoprolol (LOPRESSOR) 100 mg tablet Take 1 tablet (100 mg total) by mouth 2 (two) times a day 3 Active magnesium oxide (MAG-OX) 250 mg (150.8 mg elemental) tablet Take 1 tablet (250 mg total) by mouth daily 3 Active losartan (COZAAR) 100 mg tablet 3 Active famotidine (PEPCID) 20 mg tablet TAKE 1 TABLET BY MOUTH ONCE DAILY FOR HEARTBURN 3 Active Active Problems Problem Noted Date Diagnosed Date Paroxysmal atrial fibrillation 08/18/2022 Essential hypertension 08/18/2022 Social History Tobacco Use Types Packs/Day Years Used Date Smoking Tobacco: Never Passive Smoke Exposure: Past Smokeless Tobacco: Never Tobacco Cessation:Counseling Given: Not Answered Personal Safety Answer Date Recorded Getting School Help Needed Not on file 05/24 Comments Unknown Sex and Gender Information Value Date Recorded Sex Assigned at Not on file 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 Gender Identity Not on file Sexual Orientation Not on file Last Filed Vital Signs Vital Sign Reading Time Taken Comments Blood Pressure 150/80 12/20/2023 1:50 PM CDT Pulse 67 12/20/2023 1:50 PM CDT Temperature 36.4 C (97.5 F) 07/13/2016 1:41 PM CDT Respiratory Rate - - Oxygen Saturation 94% 12/20/2023 1:50 PM CDT Inhaled Oxygen Concentration - - Weight 64.8 kg (142 lb 14.4 oz) 12/20/2023 1:50 PM CDT Height 170.2 cm (5' 7 ) 12/20/2023 1:50 PM CDT Body Mass Index 22.38 12/20/2023 1:50 PM CDT Plan of Treatment Not on file Insurance [facility] MEDICARE MEDICARE [facility] Care Teams Boot Liner Maker Relationship Specialty Start Date End Date Raji Hernández MD PCP - General Family Practice 08/18/22
--- OUTSIDE RECORDS SUMMARY | 2024-06-11 12:28 | XMS_ITS | Clinical Summary ---
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 Gender Identity Not on file Sexual Orientation Not on file Obstetrics History Last Filed Vital Signs Vital Sign Reading [...] 12/20/2023 1:50 PM CDT Plan of Treatment Health Maintenance Due Date Last Done Comments Depression Screening 1935 Fall Risk Assessment 1935 DTaP/Tdap/Td Vaccine (1 - Tdap) 11/22/1946 Hepatitis B Screening 11/22/1953 Pneumococcal vaccine 65+ (1 of 1 - PCV) 11/22/1985 Well Visit 65+ 11/22/2000 Zoster Vaccine (2 of 3) 10/15/2014 08/20/2014 Covid-19 Vaccine (5 - 2023-2 5 season) 2023 01/06/2022, 02/04/2021, 06/23/2020, Additional history exists Influenza Vaccine (#1) 2023 , 12/24/2020, 12/26/2019 Insurance REPLACED BY [facility] MEDICARE MEDICARE REPLACED BY [facility] Care Teams Business Resiliency Manager Relationship Specialty Start Date End Date Raji Hernández MD PCP - General Family Practice 08/18/22
--- OUTSIDE RECORDS SUMMARY | 2024-06-11 12:28 | XMS_ITS | Encounter Summary ---
Author Organization [facility] Care Team Providers Care Subscription Agent Name Role Phone Clive Nascimento DO Primary Care Provider [phone] Raji Hernández MD Primary Care Provider [phone] Encounter Details Date Type Department Care Team (Latest Contact Info) Description 10/13/2016 Orders Only [facility]IN[facility] ProviderDarleen MD [address] [place] [address] Social History Tobacco Use Types Packs/Day Years Used Date Smoking Tobacco: Never Assessed Comments Unknown Sex and Gender Information Value Date Recorded Sex Assigned at Not on file 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 Historical Provider Final Res ult documented in this encounter Visit Diagnoses Not on filedocumented in this encounter Care Teams Subscription Agent Relationship Specialty Start Date End Date Clive Nascimento DO PCP - General Internal Medicine 05/27/22 08/17/22 Raji Hernández MD PCP - General Family Practice 08/18/22 documented as of this encounter
[2024-06-11] MEDS: ACETAMINOPHEN 650 MG SUPPOSITORY RECTAL (12:30)
[2024-06-11] MEDS: SODIUM CHLORIDE 0.9% IV 1,000 ML 999 ML IV CONT (12:30)
[2024-06-11 12:40] LABS: Basophils Percent Auto 0.2 % (0.2-1.2); Hematocrit 41.2 % (37.0-47.0); Hemoglobin 13.8 g/dL (12.0-15.0); Immature Granulocyte Absolute 0.08 K/mm3 (0.00-0.031); Immature Granulocyte Percent A 0.7 % (0-0.5); Lymphocytes Absolute Auto 0.33 K/mm3 (0.9-3.2); Mean Corpuscular HGB Conc 33.5 g/dl (32-36); Mean Corpuscular Hemoglobin 31.2 pg (26-34); Mean Platelet Volume 10.1 fl (7.4-10.4); Monocytes Absolute Auto 0.2 K/mm3 (0.1-0.6); Monocytes Percent Auto 2.1 % (2.6-8.5); Neutrophils Absolute Auto 10.5 K/mm3 (1.3-6.7); Platelet Count Result 184 k/mm3 (150-375); Red Blood Count 4.43 M/mm3 (4.2-5.4); Red Cell Distribution Width 13.1 % (11.5-14.5); White Blood Count 11.2 K/mm3 (4.5-10.0)
[2024-06-11 12:41] VITALS: BP 191/88; PULSE 94; RESP 22; O2SAT 99
[2024-06-11 12:44] VITALS: PULSE 91
[2024-06-11] MEDS: METOPROLOL TARTRATE INJ 5 MG/5 ML VIAL IV PUSH (12:44)
[2024-06-11 12:50] LABS: Lactic Acid Reflex 3.4 mmol/L (0.7-2.0)
[2024-06-11 12:52] LABS: Alanine Aminotransferase 29 U/L (6-35); Albumin Level 4.9 g/dL (3.5-5.1); Alkaline Phosphatase 72 U/L (38-126); Anion Gap 15 mmol/L (4-12); Aspartate Amino Transferase 28 U/L (14-36); Bilirubin,Total 1.3 mg/dL (0.2-1.3); Blood Urea Nitrogen 12 mg/dL (7-17); CRP < 0.5 mg/dL (<1.0); Calcium 9.7 mg/dL (8.4-10.2); Carbon Dioxide 24 mmol/L (22-30); Chloride 95 mmol/L (98-107); Estimated CRCL calculation 41 ml/min; Estimated Glomerular Filt Rate > 60; Glucose 154 mg/dL (65-110); Potassium 4.4 mmol/L (3.4-5.0); Sodium 134 mmol/L (137-145)
[2024-06-11] MEDS: HUMAN PROTHROMBIN COMPLEX(PCC) 2,000 UNITS in PREMIXIV 0 ML 468 UNITS IV CONT (12:53)
[2024-06-11 12:57] LABS: Prothrombin Time 23.3 Seconds (11.1-14.7)
[2024-06-11 12:58] LABS: Partial Thromboplastin Time 35.3 Seconds (22.3-36.8)
[2024-06-11 13:16] LABS: Influenza A QL RT-PCR Negative (Negative); Influenza B QL RT-PCR Negative (Negative); RSV RNA, RT-PCR Negative (Negative); SARS-CoV-2 RNA PCR Negative (Negative)
--- OUTSIDE RECORDS SUMMARY | 2024-06-11 14:30 | XMS_ITS | Encounter Summary ---
Author Organization [facility] Facility Care Team Providers Care Interstate Planner Name Role Phone Clive Nascimento DO Primary Care Provider [phone] Raji Hernández MD Primary Care Provider [phone] Encounter Details Date Type Department Care Team (Latest Contact Info) Description 06/11/2016 Orders Only [facility]IN[facility] ProviderDarleen MD [address] [place] [address] Social History Tobacco Use Types Packs/Day Years Used Date Smoking Tobacco: Never Assessed Comments Unknown Sex and Gender Information Value Date Recorded Sex Assigned at Not on file Legal Sex Female 9:09 PM FRONT END ARCHITECT Gender Identity Not on file Sexual Orientation [...] on filedocumented in this encounter Care Teams Interstate Planner Relationship Specialty Start Date End Date Clive Nascimento DO PCP - General Internal Medicine 05/27/22 08/17/22 Raji Hernández MD PCP - General Family Practice 08/18/22 documented as of this encounter
--- OUTSIDE RECORDS SUMMARY | 2024-06-11 14:30 | XMS_ITS | Encounter Summary ---
Author Organization [facility] Facility Care Team Providers Care Final Touch Up Painter Name Role Phone Clive Nascimento DO Primary Care Provider [phone] Raji Hernández MD Primary Care Provider [phone] Encounter Details Date Type Department Care Team (Latest Contact Info) Description 01/15/2017 Orders Only [facility] CLINCONV Provider, MD Darleen [address] [place] [address] Social History Tobacco Use Types Packs/Day Years Used Date Smoking Tobacco: Never Assessed Comments Unknown Sex and Gender Information Value Date Recorded Sex Assigned at Not on file Legal Sex Female 9: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 Historical Provider Final Res ult documented in this encounter Visit Diagnoses Not on filedocumented in this encounter Care Teams Final Touch Up Painter Relationship Specialty Start Date End Date Clive Nascimento DO PCP - General Internal Medicine 05/27/22 08/17/22 Raji Hernández MD PCP - General Family Practice 08/18/22 documented as of this encounter
--- OUTSIDE RECORDS SUMMARY | 2024-06-11 14:30 | XMS_ITS | Encounter Summary ---
Author Organization [facility] Facility Care Team Providers Care Legal Editor Name Role Phone Clive Nascimento DO Primary Care Provider [phone] Raji Hernández MD Primary Care Provider [phone] Encounter Details Date Type Department Care Team (Latest Contact Info) Description 02/05/2016 Orders Only [facility] CLINCON[facility] ProviderDarleen MD [address] [place] [address] Social History Tobacco Use Types Packs/Day Years Used Date Smoking Tobacco: Never Assessed Comments Unknown Sex and Gender Information Value Date Recorded Sex Assigned at Not on file 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
--- OUTSIDE RECORDS SUMMARY | 2024-06-11 14:30 | XMS_ITS | Clinical Summary ---
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
--- OUTSIDE RECORDS SUMMARY | 2024-06-11 14:30 | XMS_ITS | Referral Summary ---
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
--- OUTSIDE RECORDS SUMMARY | 2024-06-11 14:30 | XMS_ITS | Encounter Summary ---
Author Organization [facility] Facility Care Team Providers Care Oxygen Plant Operator Name Role Phone Clive Nascimento DO Primary Care Provider [phone] Raji Hernández MD Primary Care Provider [phone] Encounter Details Date Type Department Care Team (Latest Contact Info) Description 10/13/2016 Orders Only [facility] CLINCON[facility] ProviderDarleen MD [address] [place] [address] Social History Tobacco Use Types Packs/Day Years Used Date Smoking Tobacco: Never Assessed Comments Unknown Sex and Gender Information Value Date Recorded Sex Assigned at Not on file Legal Sex Female 9:09 PM SERVICE PERSON Gender Identity Not on file Sexual Orientation [...] on filedocumented in this encounter Care Teams Oxygen Plant Operator Relationship Specialty Start Date End Date Clive Nascimento DO PCP - General Internal Medicine 05/27/22 08/17/22 Raji Hernández MD PCP - General Family Practice 08/18/22 documented as of this encounter
[2024-06-11 14:38] LABS: Reflex Lactic Acid Yes or No Add Lactic
== END 2024-06-11 13:23 | disposition short-term general hospital (02) ==
LOC: ANHED 12:05
PROVIDERS: Emergency Provider Emergency Medicine; PCP Nurse Practitioner Family
DX: S06.34AA Traumatic hemorrhage of right cerebrum with loss of consciousness status unknown, initial encounter (principal); Z20.822 Contact with and (suspected) exposure to COVID-19; I48.91 Unspecified atrial fibrillation; I10 Essential (primary) hypertension; E78.5 Hyperlipidemia, unspecified; E04.2 Nontoxic multinodular goiter; K21.9 Gastro-esophageal reflux disease without esophagitis; Z98.49 Cataract extraction status, unspecified eye; Z86.73 Personal history of transient ischemic attack (TIA), and cerebral infarction without residual deficits; Z79.01 Long term (current) use of anticoagulants; Z79.899 Other long term (current) drug therapy; W19.XXXA Unspecified fall, initial encounter
CPT/HCPCS: 36415; 70450; 72125; 74018; 80053; 83605; 85025; 85610; 85730; 86140; 87637; 96361; 96374; 96375; 99291; A9270; J7030; J7168

== ENCOUNTER 2024-06-17 11:13 | Emergency (ER) | payer MEDICARE, SELFPAY ==
--- NOTE | ~2024-06-17 | CT_ITS ---
History: Remote history of a fall on 06/11/2024 (with intraventricular bleed), now with recurrent fall and altered mental status PROCEDURE: CT head without contrast. COMPARISON: 06/11/2024 and dating back to 05/27/2022. TECHNIQUE: Axial imaging of the head performed from the skull base to the vertex without IV contrast. Sagittal a nd coronal reformations obtained. DLP: 605 mGy-cm FINDINGS: Redemonstration of increased attenuation within the right lateral ventricle, demonstrating evolution of the previously detected intracranial hemorrhage. Further evolution of the decreased attenuation within the right occipital lobe consistent with recent cerebral infarction (between 05/2022 and 05/2024). Interval development of increased attenuation within the sulci/gyri of the left occipital lobe, not p resent on the prior examination dated 06/11/2024, now with effacement of the adjacent sulci for which acute subarachnoid hemorrhage and surrounding edema is suspected. This new area of increased attenuation is best identified on axial series, image 26 through 29, coron al series images 66 through 69 and sagittal series, images 44 through 49. There is no mass or midline shift. There is no abnormal extra-axial fluid collection or additional evidence to suggest the presence of a cute intracranial hemorrhage. Visualized paranasal sinuses are clear. The mastoid air cells are well aerated. No acute displaced fractures within the overlying cranium. Right frontal (likely) meningioma is redemonstrated. Impression: Redemonstration of intraventricular hemorrhage, as detailed above. Interval development of acute subarachnoid hemorrhage with surrounding edema in the left occipital lo be, as detailed above. These findings were discussed with Dr. Marti at 12:20 PM on 06/17/2024 Reviewed, dictated and finalized at location A. Impression: Redemonstration of intraventricular hemorrhage, as detailed above. Interval development of acute subarachnoid hemorrhage with surrounding edema in the left occipital lobe, as detailed above. These findings were discussed with Dr. Marti at 12:20 PM on 06/17/2024
[2024-06-17 11:19] VITALS: BP 166/83; PULSE 71; RESP 20; TEMP 36.6; O2SAT 98
--- OUTSIDE RECORDS SUMMARY | 2024-06-17 11:54 | XMS_ITS | Clinical Summary ---
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
--- OUTSIDE RECORDS SUMMARY | 2024-06-17 11:54 | XMS_ITS ---
Author Name Clive Nascimento I Address [address] , [address] [place] [address] Phone [phone] [facility] Address [address] [place] [address] Phone [phone] Care Team Providers Care Horticultural Specialty Grower Field Name Role Phone Clive Nascimento I Unavailable [phone] Heather Frazier Unavailable Lang Alba Unavailable Functional Status No Results Mental Status No Results Allergies and Intolerances Name Onset Date Reaction Severity amlodipine (Allergy) TueMay 30 17:09:00 EST 202 3 Encounters Program Name Primary Diagnosis Admission Date/Time Dis charge Date/Time Therapeutic Strategy [facility] TueMar 27 19:00:00 EST 1 [facility] TueJun 18 06:30:00 EDT 2022 Medications Medication Directions Start Date End Date metoprolol tartrate 100 mg tablet 1 TAB TABLET Oral 2 Times Daily Indication: HYPERTENSION TueJun 09 15:37:00 EDT 2022Jun 21 01:00:00 EDT 2022 cloNIDine HCL 0.1 mg tablet 1 tablet TABLET Oral 3 Times Daily Indication: HTN TueJun 08 13:00:00 EDT 2022Jun 21 01:00:00 EDT 2022 cloNIDine HCL 0.1 mg tablet 1 tablet TABLET Oral 2 Times Daily Indication: HTN TueJun 04 07:00:00 EST 2022 14 13:23:00 EDT 2022 cloNIDine HCL 0.1 mg tablet 1 tablet TABLET Oral 1 Time Daily Indication: HTN TueJun 03 07:00:00 EST 2022Jun 03 19:29:00 EST 2022 cloNIDine HCL 0.1 mg tablet 1 tablet TABLET Oral 1 Time Daily for 1 Day Indication: HTN TueJun 03 07:00:00 EST 2022Jun 04 06:59:00 EST 2022 TUBErsoL 5 tub. unit/0.1 mL intradermal injection solution 0.1 ml VIAL (ML) Intradermal 1 Time Weekly for 2 Weeks Indication: TB Test 1st injection on admission, then one week after. Read between 48 and 72 hours TueMay 31 15:00:00 EST 2022Jun 14 14:59:00 EDT 2022 TUBErsoL 5 tub. unit/0.1 mL intradermal injection solution Read Results VIAL (ML) Other 1 Time Weekly for 2 Weeks Indication: TB Test Read results between 48-72 hours after 1st and 2nd (1 week apart). If positive do chest x-ray. TueMay 31 15:00:00 EST 2022Jun 14 14:59:00 EDT 2022 Eliquis 5 mg tablet 1 TAB TABLET Oral Ev gena 12 Hours Indication: CLOT PREVENTION TueMay 30 17:00:00 EST 2022Jun 21 01:00:00 EDT 2022 magnesium 250 mg (as magnesium oxide) tablet 1 TAB TABLET Oral 1 Time Daily Indication: SUPPLEMENT TueMay 30 17:00:00 EST 2022Jun 21 01:00:00 EDT 2022 famotidine 20 mg tablet 1 TAB TABLET Ora l 1 Time Daily Indication: HEARTBURN TueMay 30 17:00:00 EST 2022Jun 21 01:00:00 EDT 2022 metoprolol tartrate 100 mg tablet 1 TAB TABLET Oral 1 Time Daily Indication: HYPERTENSION TueMay 30 17:00:00 EST 2022Jun 09 15:38:00 EDT 2022 metoprolol tartrate 50 mg tablet 1 TAB TABLET Oral Every Evening Indication: HYPERTENSION TueMay 30 17:00:00 EST 2022Jun 10 02:43:00 EDT 2022 calcium carbonate 600 mg-vitamin D3 20 mcg (800 unit) tablet 1 TAB TABLET Oral 1 Time Daily Indication: SUPPLEMENT TueMay 30:00: EST 2022Jun 21 01:00:00 EDT 2022 losartan 100 mg tablet 1 TAB TABLET Oral 1 Time Daily Indication: HYPERTENSION TueMay 30:00: EST 2022Jun 21 01:00:00 EDT 2022 Fiber Laxative (methylcellulose) 500 mg tablet 1 TAB TABLET Oral PRN 1 Time Daily Indication: CONSTIPATION TueMay 30 01:00:00 EST 2022Jun 21 01:00:00 EDT 2022 atorvastatin 80 mg tablet 1 TAB TABLET O ral 1 Time Daily Indication: HYPERLIPIDEMIA TueMay 30 17:00: EST 2022Jun 21 01:00:00 EDT 2022 Problems Active Concerns * Other sequelae of cerebral infarction* Code: * Start Date: TueMay 30 00:00:00 EST 2022 * End Date: * Text: * Unqualified visual loss, left eye, normal vision right eye* Code: * Start Date: TueMay 30 00:00:00 EST 2022 * End Date: * Text: * Hemiplegia and hemiparesis following cerebral infarction affecting left non- dominant side* Code: * Start Date: TueMay 30 00:00:00 EST 2022 * End Date: * Text: * Unspecified atrial fibrillation* Code: * Start Date: TueMay 30 00:00:00 EST 2022 * End Date: * Text: * Gastro-esophageal reflux disease without esophagitis* Code: * Start Date: TueMay 30 00:00:00 EST 2022 * End Date: * Text: * Essential (primary) hypertension* Code: * Start Date: TueMay 30 00:00:00 EST 2022 * End Date: * Text: * Occlusion and stenosis of left vertebral artery* Code: * Start Date: TueMay 30 00:00:00 EST 2022 * End Date: * Text: * Nontoxic multinodular goiter* Code: * Start Date: TueMay 30 00:00:00 EST 2022 * End Date: * Text: * Mixed hyperlipidemia* Code: * Start Date: TueMay 30 00:00:00 EST 2022 * End Date: * Text: * Hypomagnesemia* Code: * Start Date: TueMay 30 00:00:00 EST 2022 * End Date: * Text: * Slow transit constipation* Code: * Start Date: TueMay 30 00:00:00 EST 2023 * End Date: * Text: * Unspecified hearing loss, unspecified ear* Code: * Start Date: TueMay 30 00:00:00 EST 2022 * End Date: * Text: * residential (current) use of anticoagulants* Code: * Start Date: TueMay 30 00:00:00 EST 2022 * End Date: * Text: * Paroxysmal atrial fibrillation* Code: * Start Date: TueMay 30 00:00:00 EST 2022 * End Date: * Text: * Unspecified lack of coordination* Code: * Start Date: TueJun 21 00:00:00 EDT 2022 * End Date: * Text: * Muscle weakness (generalized)* Code: * Start Date: TueJun 21 00:00:00 EDT 2022 * End Date: * Text: Reason for Referral Past Medical History
--- OUTSIDE RECORDS SUMMARY | 2024-06-17 11:54 | XMS_ITS | Encounter Summary ---
Author Organization [facility] Care Team Providers Care Vehicle Modification Technician Name Role Phone Clive Nascimento DO Primary Care Provider [phone] Raji Hernández MD Primary Care Provider [phone] Encounter Details Date Type Department Care Team (Latest Contact Info) Description 10/13/2016 Orders Only [facility] ProviderDarleen MD [address] [place] [id number] Social History Tobacco Use Types Packs/Day Years Used Date Smoking Tobacco: Never Assessed Comments Unknown Sex and Gender Information Value Date Recorded Sex Assigned at Not on file Legal 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
--- OUTSIDE RECORDS SUMMARY | 2024-06-17 11:54 | XMS_ITS | Referral Summary ---
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
--- OUTSIDE RECORDS SUMMARY | 2024-06-17 11:54 | XMS_ITS | Clinical Summary ---
Author Organization [facility] Address [address] [place] [address] Care Team Providers Care Certified Ski Patroller Name Role Phone None, Physician Primary Care Provider Unavailabl e Source Comments [facility],non-owned Affiliates and Associated Physician Practices is amultiple site organization consisting of ambulatory clinics and hospital sitesin [place], [place], [place] and [place]. This disclosure is being madepursuant to the Care Everywhere program and may not contain all information available regarding this patient. Last updated 17.[facility] Allergies Active Allergy Reactions Criticality Noted Date Comments Amiodarone Unknown 06/11/2024 Amlodipine Base Unknown 06/11/2024 Medications * Be aware that medications may not be up to date on this document. Alwaysverify current medications with the patient. Medication Sig Dispensed Refills Start Date End Date Status acetaminophen (Tylenol) 325 MG tablet Take 2 (two) tablets by mouth every 4 hours as needed Maximum allowable Acetaminophen amount = 4 Grams (4000 mg) / 24 hours. 06/14/2024 Active cloNIDine (Catapres) 0.2 MG tablet Take 1 (one) tablet by mouth 3 times daily 270 tablet 06/14/2024 Active losartan (Cozaar) 100 MG tablet Take 1 (one) tablet by mouth once daily 90 tablet 06/15/2024 Active metoprolol tartrate IR (Lopressor) 100 MG tablet Take 1 (one) tablet by mouth 2 times daily 180 tablet 06/14/2024 Active Active Problems Problem Noted Date Diagnosed Date Weakness 06/11/2024 Current use of prison anticoagulation 025 Intraventricular hemorrhage 06/11/2024 A-fib 06/11/2024 Cerebrovascular accident (CVA) due to embolism 0 06/11/2024 Encounters Date Type Department Care Team Description 06/15/2024 Telephone Transitional Care at [address] [phone] Zoe Barnett RN Transitional Care 06/15/2024 Telephone Transitional Care at [address] [phone] Zoe Barnett RN Transitional Care 06/11/2024 1:49 PM CDT - 06/14/2024 3:06 PM CDT Hospital Encounter [facility] 5N ACUTE [address] [place] [phone] Zackery Miller MD Linares, Guillermo, MD Neurology Discharge Disposition: Home or Self Care 06/11/2024 Travel from Last 3 Months Social History Tobacco Use Types Packs/Day Years Used Date Smoking Tobacco: Never Smokeless Tobacco: Never Tobacco Cessation:Counseling Given: Not Answered Alcohol Use Standard Drinks/Week Comments Yes 0 (1 standard drink = 0.6 oz pure alcohol) on occassion when going out to dinner, does not remember her last drink AUDIT-C Answer Date Recorded Q1: How often do you have a drink containing alc ohol? Monthly or less 06/11/2024 Q2: How many drinks containi ng alcohol do you have on a typical day when you are drinking? 1 or 2 06/11/2024 Q3: How often do you have si x or more drinks on one occasion? Never 06/11/2024 Overall Financial Resource Strain (CARDIA) Answe r Date Recorded How hard is it for you to pa y for the very basics like food, housing, medical care, and heating? Not very hard 06/12/2024 PHQ-2 Answer Date Recorded Patient Health Questionnaire-2 Score 0 06/13/2024 [facility] Occupat ional [facility] - Occupational Stress Questionnaire Answer Date Recorded Do you feel stress - tense, restless, nervous, or anxious, or unable to sleep at night because your mind is troubled all the time - these days? To some extent 06/12/2024 Hunger Vital Sign Answer Date Recorded Within the past 12 months, y ou worried that your food would run out before you got the money to buy more. Never true 06/13/19 25 Within the past 12 months, t he food you bought just didn't last and you didn't have money to get more. Never true 06/12/2024 PRAPARE - Transportation Answer Date Re corded In the past 12 months, has l ack of transportation kept you from medical appointments or from getting medications? No 05/26 In the past 12 months, has l ack of transportation kept you from meetings, work, or from getting things needed for daily living? No 06/12/2024 Housing Stability Vital Sign Answer Michael e Recorded In the last 12 months, was t here a time when you were not able to pay the mortgage or rent on time? No 06/12/2024 In the past 12 months, how m any times have you moved where you were living? 1 06/12/2024 At any time in the past 12 m [facility], were you homeless or living in a jail (including now)? No 06/12/2024 Sex and Gender Information Value Date Recorded Sex Assigned at Not on file Gender Identity Not on file Sexual Orientation Not on file Last Filed Vital Signs Vital Sign Reading Time Taken Comments Blood Pressure 133/84 06/14/2024 10:00 AM CDT Pulse 66 06/14/2024 7:54 AM CDT Temperature 36.7 C (98 F) 06/14/2024 7:54 AM CDT Respiratory Rate 14 06/14/2024 7:54 AM CDT Oxygen Saturation 95% 06/14/2024 7:54 AM CDT Inhaled Oxygen Concentration - - Weight 72 kg (158 lb 11.2 oz) 06/14/2024 7:12 AM CDT Height 167.6 cm (5' 6 ) 06/12/2024 2:46 AM CDT Body Mass Index 25.61 06/12/2024 2:46 AM CDT Plan of Treatment Upcoming Encounters Date Type Department Care Team (Late st Contact Info) Description 07/19/2024 10:00 AM CDT Office Visit [facility] - Neurology [address] [place] [address] Lisa Decker PA-C [address] [place] [address] [address] [place] [address] Health Maintenance Due Date Last Done Comments BONE DENSITY TESTING 1935 MEDICARE AWV 12 MONTHS 1935 DTAP/TDAP/TD VACCINES (1 - Tdap) 11/22/1954 PNEUMOCOCCAL VACCINE 50+ (1 of 1 - PCV) 11/22/1985 ZOSTER VACCINE (1 of 2) 11/22/1985 Respiratory Syncytial Virus (RSV) Vaccine Pt: or over 60 yrs (1 - 1-dose 75+ series) 11/22/2010 COVID-19 VACCINE ( - 2023-2 5 season) 2023 INFLUENZA VACCINE (#1) 2023 DEPRESSION SCREENING 03/28/2024 HEPATITIS B VACCINE Aged Out No longe r eligible based on patient's age to complete this topic HIB VACCINE Aged Out No longer eligi ble based on patient's age to complete this topic HPV VACCINE Aged Out No longer eligi ble based on patient's age to complete this topic MENINGOCOCCAL (Group B) VACC INE SHARED DECISION-MAKING Aged Out No longer eligibl e based on patient's age to complete this topic MENINGOCOCCAL GROUPS A/C/Y/W VACCINE Aged Out No longer eligible b ased on patient's age to complete this topic Procedures Procedure Name Priority Date/Time Associated Diagnosis Comments PHOSPHORUS BLOOD Routine 06/14/2024 2:17 AM CDT MAGNESIUM BLOOD Routine 06/14/2024 2:17 AM CDT COMPREHENSIVE METABOLIC PANEL AM Draw 06/14/2024 2:17 AM CDT CBC W AUTO DIFFERENTIAL AM Draw 06/14/2024 2:17 AM CDT PHOSPHORUS BLOOD Routine 06/13/2024 12:1 8 AM CDT MAGNESIUM BLOOD Routine 06/13/2024 12:18 AM CDT COMPREHENSIVE METABOLIC PANEL AM Draw 06/13/2024 12:18 AM CDT CBC W AUTO DIFFERENTIAL AM Draw 06/13/2024 12:18 AM CDT CARDIAC EKG ORDER 06/12/2024 11: 05 AM CDT GLUCOSE - POINT OF CARE Routine 06/12/2024 8:12 AM CDT HEMOGLOBIN A1C AM Draw 06/12/2024 4:34 AM CDT GLUCOSE - POINT OF CARE Routine 06/12/2024 4:33 AM CDT PHOSPHORUS BLOOD STAT 06/12/2024 12:4 2 AM CDT MAGNESIUM BLOOD STAT 06/12/2024 12:42 AM CDT COMPREHENSIVE METABOLIC PANEL STAT 06/12/2024 12:42 AM CDT CBC W AUTO DIFFERENTIAL STAT 06/12/2024 12:42 AM CDT GLUCOSE - POINT OF CARE Routine 06/12/2024 12:[address] HEAD WO CONTRAST Routine 06/11/2024 1 0:13 PM CDT Intraventricular hemorrhage BLOOD TYPE VERIFICATION STAT 06/11/2024 2:28 PM CDT TROPONIN-I HIGH SENSITIVE REFLEX 1HOUR Timed 06/11/2024 2:28 PM CDT TYPE + SCREEN PANEL STAT 06/11/2024 2 :10 PM CDT PHOSPHORUS BLOOD STAT 06/11/2024 2:10 PM CDT MAGNESIUM BLOOD STAT 06/11/2024 2:10 PM CDT TROPONIN-I HIGH SENSITIVE BASELINE + 1HR STAT 06/11/2024 2:10 PM CDT PTT [facility] STAT 06/11/2024 2:10 PM CDT CBC W AUTO DIFFERENTIAL STAT 06/11/2024 2:10 PM CDT PT-INR [facility] STAT 06/11/2024 2:10 PM CDT COMPREHENSIVE METABOLIC PANEL STAT 06/11/2024 2:10 PM CDT EKG 12-LEAD STAT 06/11/2024 2:[address] ANGIO BRAIN NECK STROKE STAT 06/11/2024 2:05 PM CDT Weakness CREATININE - POCT INTERFACED Routine 06/11/2024 1:[address] BRAIN STROKE STAT 06/11/2024 1:52 PM CDT Weakness from Last 3 Months Results * (ABNORMAL) CBC W AUTO DIFFERENTIAL (06/14/2024 2:17 AM CDT) Only the most recent of4 resultswithin the time period is included. WBC 9.5 4.0 - 10.7 x10E9/L 06/14/2024 2:36 AM [facility] RBC Count 3.91 3.90 - 5.20 x10E12/L 06/14/2024 2:36 AM [facility] Hemoglobin 11.9 11.9 - 15.8 g/dL 06/14/2024 2:36 AM [facility] Hematocrit 35.7 34.8 - 46.1 % 06/14/2024 2:36 AM [facility] MCV 91.3 80.0 - 98.0 fL 06/14/2024 2:36 AM [facility] MCH 30.4 26.7 - 33.6 pg 06/14/2024 2:36 AM [facility] MCHC 33.3 31.7 - 36.3 g/dL 06/14/2024 2:36 AM [facility] RDW-CV 13.3 11.3 - 14.8 % 06/14/2024 2:36 AM [facility] Platelet Count 161 150 - 420 x10E9/L 06/14/2024 2:36 AM [facility] MPV 9.7 7.8 - 11.4 fL 06/14/2024 2:36 AM [facility] Neutrophil % 69.1 41.0 - 74.0 % 06/14/2024 2:36 AM [facility] Lymphocyte % 15.1(L) 17.0 - 47.0 % 06/14/2024 2:36 AM [facility] Monocyte % 11.8(H) 3.0 - 11.0 % 06/14/2024 2:36 AM [facility] Eosinophil % 2.8 0.0 - 7.0 % 06/14/2024 2:36 AM [facility] Basophil % 0.5 0.0 - 1.6 % 06/14/2024 2:36 AM [facility] Immature Granulocytes % 0.7 0.0 - 1.0 % 06/14/2024 2:36 AM [facility] Neutrophil Absolute 6.58 1.60 - 7.50 x10E9/L 06/14/2024 2:36 AM [facility] Lymphocyte Absolute 1.44 1.00 - 4.40 x10E9/L 06/14/2024 2:36 AM [facility] Monocyte Absolute 1.12(H) 0.15 - 1.00 x10E9/L 06/14/2024 2:36 AM [facility] Eosinophil Absolute 0.27 0.00 - 0.60 x10E9/L 06/14/2024 2:36 AM [facility] Basophil Absolute 0.05 0.00 - 0.13 x10E9/L 06/14/2024 2:36 AM [facility] Blood BLOOD SPECIMEN / Unknown Lab Venipuncture / Unknown 06/14/2024 2:17 AM CDT 06/14/2024 2:30 AM T Montez Cason MD LAB - HEMATOLOGY OR DERABLES [facility] [address] [place] [address], [facility] [phone] * (ABNORMAL) COMPREHENSIVE METABOLIC PANEL (06/14/2024 2:17 AM [facility]) Only the most recent of4 resultswithin the time period is included. BUN 20 7 - 26 mg/dL 06/14/2024 3:01 AM [facility] Creatinine 0.84 0.56 - 0.96 mg/dL 06/14/2024 3:01 AM [facility] Sodium 134(L) 136 - 145 mmol/L 06/14/2024 3:01 AM [facility] Potassium 4.6(H) 3.5 - 4.5 mmol/L 06/14/2024 3:01 AM [facility] Chloride 104 98 - 107 mmol/L 06/14/2024 3:01 AM [facility] CO2 24 22 - 29 mmol/L 06/14/2024 3:01 AM [facility] Glucose 120(H) 70 - 99 mg/dL 06/14/2024 3:01 AM [facility] Calcium 8.8 8.4 - 10.2 mg/dL 06/14/2024 3:01 AM [facility] Protein Total 5.7(L) 6.0 - 8.3 g/dL 06/14/2024 3:01 AM [facility] Albumin 3.3(L) 3.4 - 5.0 g/dL 06/14/2024 3:01 AM [facility] Bilirubin Total 0.8 0.2 - 1.2 mg/dL 06/14/2024 3:01 AM [facility] Alkaline Phosphatase 54 40 - 150 U/L 06/14/2024 3:01 AM [facility] ALT 20 5 - 55 U/L 06/14/2024 3:01 AM [facility] AST 21 5 - 34 U/L 06/14/2024 3:01 AM [facility] Anion Gap 6 6 - 16 06/14/2024 3:01 AM [facility] BUN/Creatinine Ratio 24(H) 7 - 23 06/14/2024 3:01 AM T [facility] Osmolality Calculated 282 275 - 295 mOsm/kg 06/14/2024 3:01 AM T [facility] Albumin/Globulin Ratio 1.4 1.1 - 2.3 06/14/2024 3:01 AM [facility] eGFR by CKD-EPI 67(L) >=90 mL/min/1.7 3 m2 06/14/2024 3:01 AM T [facility] Blood BLOOD SPECIMEN / Unknown Lab Venipuncture / Unknown 06/14/2024 2:17 AM CDT 06/14/2024 2:28 AM CDT Montez Cason MD LAB - CHEMISTRY ORD ERABLES [address] [address], [facility] [phone] * PHOSPHORUS BLOOD (06/14/2024 2:17 AM CDT) Only the most recent of4 resultswithin the time period is included. Phosphorus 3.1 2.9 - 5.1 mg/dL 06/14/2024 3:01 AM T [facility] Blood BLOOD SPECIMEN / Unknown Lab Venipuncture / Unknown 06/14/2024 2:17 AM CDT 06/14/2024 2:28 AM CDT Montez Cason MD LAB - CHEMISTRY ORD ERABLES [address] [address], [place] [phone] * MAGNESIUM BLOOD (06/14/2024 2:17 AM CDT) Only the most recent of4 resultswithin the time period is included. Magnesium 1.9 1.6 - 2.6 mg/dL 06/14/2024 3:01 AM T [facility] Blood BLOOD SPECIMEN / Unknown Lab Venipuncture / Unknown 06/14/2024 2:17 AM CDT 06/14/2024 2:28 AM CDT Montez Cason MD LAB - CHEMISTRY ORD ERABLES [facility] [address] [place] [address], [place] [phone] * CARDIAC EKG ORDER (06/12/2024 11:05 AM CDT) Narrative 06/12/2024 11:05 AM CDT Ordered by an unspecified provider. Scanned Document CARDIAC SERVICES ORD ERABLES * (ABNORMAL) GLUCOSE - POINT OF CARE (06/12/2024 8:12 AM CDT) Only the most recent of3 resultswithin the time period is included. Glucose WB/POC 110(H) 70 - 99 mg/dL 06/12/2024 8:20 AM CDT [facility] Specimen Type Cap Fingerstick 2024 8:20 AM CDT [facility] Blood BLOOD SPECIMEN / Unknown 06/12/2024 8:12 AM CDT 06/12/2024 8:20 AM CDT Montez Cason MD LAB - POINT OF CARE ORDERABLES Performing Organization Address City/[facility]/ZIP Co de Phone Number [facility] [address] [place] [address], [place] [phone] * HEMOGLOBIN A1C (06/12/2024 4:34 AM CDT) Pathologist [facility] Hemoglobin A1c 5.1 <=5.6 % 06/12/2024 8:01 AM CDT [facility] Estimated Average Glucose 100 mg/dL 06/12/2024 8:01 AM CDT [facility] Comment: HbA1c Interpretation: Normal : < 5.7% Pre-diabetes: 5.7-6.4% Diabetes: Equal to or greater than 6.5% Test results diagnostic of diabetes should be repeated for confirmation. Treatment target values recommended by ADA and other clinical organizations should be used to evaluate metabolic control in patients. Reference: [place] Diabetes Association, Standards of Care in Diabetes -2020 In patients 70 years and older consider HbA1c target range of 7.0-7.5% (Reference: Mariano Gandhi et al. JAMDA. 2012) The Sebia assay for the measurement of HbA1c is a National Glycohemoglobin Standardization Program (NGSP) certified method. Blood BLOOD SPECIMEN / Unknown Venipuncture / Unknown 06/12/2024 4:34 AM CDT 06/12/2024 4:40 AM CDT Montez Cason MD LAB - CHEMISTRY ORD ERABLES [place] [id number] [place] [address], [facility] [phone] * CT Head Wo Contrast (06/11/2024 10:13 PM CDT) Anatomical Region Laterality Modality Head Computed Tomogra phy 06/11/2024 10:2 4 PM CDT Impressions 06/11/2024 10:27 PM CDT IMPRESSION: 1. Grossly unchanged intraventricular hemorrhage in the right lateral ventricle with extension into the left lateral, third and the fourth ventricles. The ventricles are stable in size. > Interpreting Provider: Christian Bennett MD on 06/11/2024 10:27 PM Narrative 06/11/2024 10:27 PM CDT PROCEDURE: CT HEAD WO CONTRAST, DATE/TIME OF EXAM: 06/11/2024 10:13 PM, LOCATION [facility] INDICATION: I61.5: Intraventricular hemorrhage (HCC) ADDITIONAL CLINICAL INFORMATION: Ordering Provider Reason For Exam: f/u IV Technologist Note: Additional: TECHNIQUE: CT of the head was performed without contrast according to standard protocol. CONTRAST: COMPARISON: No prior study is available for comparison at the time of this dictation. FINDINGS: The study is degraded by the presence of residual contrast. Grossly unchanged intraventricular hemorrhage in the right lateral ventricle with extension into the left lateral, third and the fourth ventricles. The ventricles are stable in size. There is mild cerebral volume loss with associated ex vacuo ventricular dilatation. Redemonstration of a chronic infarct in the right STOREROOM KEEPER territory. The basal cisterns are patent. No mass effect or midline shift is seen. The lau-white matter differentiation is normal. Moderate periventricular white matter hypoattenuation is nonspecific, but can be seen in the setting of chronic small vessel ischemic disease. There is atherosclerotic calcification of the carotid siphons. Other than bilateral cataract extractions, the visualized portions of the orbits, paranasal sinuses, and mastoids appear normal. No acute calvarial fracture is identified. Procedure Note Christian Bennett MD - 06/11/2024 PROCEDURE: CT HEAD WO CONTRAST, DATE/TIME OF EXAM: 06/11/2024 10:13 PM, LOCATION [facility] INDICATION: I61.5: Intraventricular hemorrhage (HCC) ADDITIONAL CLINICAL INFORMATION: Ordering Provider Reason For Exam: f/u IVH Technologist Note: Additional: TECHNIQUE: CT of the head was performed without contrast according to standard protocol. CONTRAST: COMPARISON: No prior study is available for comparison at the time ofthis dictation. FINDINGS: The study is degraded by the presence of residual contrast. Grossly unchanged intraventricular hemorrhage in the right lateral ventricle with extension into the left lateral, third and the fourth ventricles. The ventricles are stable in size. There is mild cerebral volume loss with associated ex vacuo ventricular dilatation. Redemonstration of a chronic infarct in the right STOREROOM KEEPER territory. Thebasal cisterns are patent. No mass effect or midline shift is seen. The lau-white matter differentiation is normal. Moderate periventricularwhite matter hypoattenuation is nonspecific, but can be seen in the setting of chronic small vessel ischemic disease. There is atherosclerotic calcification of the carotid siphons. Other than bilateral cataract extractions, the visualized portions ofthe orbits, paranasal sinuses, and mastoids appear normal. No acute calvarial fracture is identified. IMPRESSION: 1. Grossly unchanged intraventricular hemorrhage in the right lateral ventricle with extension into the left lateral, third and the fourth ventricles. The ventricles are stable in size. > Interpreting Provider: Christian Bennett MD on 06/11/2024 10:27 PM Montez Cason MD CT ORDERABLES * TROPONIN-I HIGH SENSITIVE REFLEX 1HOUR (06/11/2024 2:28 PM CDT) Troponin I High Sensitive 10 <=14 ng/L 06/11/2024 4:54 PM CDT [facility] Delta Troponin I HS 06/11/2024 4:54 PM CDT [facility] Comment:Delta value intentio lino not calculated. Baseline to 1 hour specimen collection interval exceeded. Blood BLOOD SPECIMEN / Unknown Venipuncture / Unknown 06/11/2024 2:28 PM CDT 06/11/2024 4:18 PM CDT Montez Cason MD LAB - CHEMISTRY ORD ERABLES Performing Organization Address City/[facility]/ZIP Co de Phone Number [facility] [address] [place] [address], [place] [phone] * BLOOD TYPE VERIFICATION (06/11/2024 2:28 PM CDT) ABO Rh AB NEG 06/11/2024 4:10 PM CDT [facility] BLOOD BANK LAB Blood Bank BLOOD SPECIMEN / Unknown Venipuncture / Unknown 06/11/2024 2:28 PM CDT 06/11/2024 3:34 PM CDT Ulysses Crowley MD LAB - BLOOD BANK ORD ERABLES Performing Organization Address [facility] Co de Phone Number [facility] BLOOD [facility]ANK LAB [address] [place] [address], [place] [phone] * PTT [facility] (06/11/2024 2:10 PM CDT) APTT 34.7 23.0 - 38.4 Seconds 06/11/2024 2:45 PM CDT [facility] Comment:Suggested therapeuti c range for full dose I.V. unfractionated heparin therapy for venous thromboembolism is 71 to 109 seconds. Blood BLOOD SPECIMEN / Unknown Venipuncture / Unknown 06/11/2024 2:10 PM CDT 06/11/2024 2:17 PM CDT Montez Cason MD LAB - COAGULATION O RDERABLES Performing Organization Address City/[facility]/ZIP Co de Phone Number [facility] [address] [place] [address], [place] [phone] * (ABNORMAL) PT-INR [facility] (06/11/2024 2:10 PM CDT) [facility] PT 19.9(H) 12.1 - 14.8 Seconds 06/11/2024 2:45 PM CDT [facility] INR 1.7 See Comment 06/11/2024 2:45 PM CDT [facility] Comment:The suggested therap eutic range for standard coumadin (warfarin) therapy is an INR of 2.0-3.0. For high-risk patients (Mechanical Mitral Valve Prosthesis, etc.), the suggested prophylactic therapeutic range is an INR of 2.5-3.5. Blood BLOOD SPECIMEN / Unknown Venipuncture / Unknown 06/11/2024 2:10 PM CDT 06/11/2024 2:17 PM CDT Ulysses Crowley MD LAB - COAGULATION OR DERABLES Performing Organization Address City/[facility]/ZIP Co de Phone Number [address] [address], [facility] [phone] * TROPONIN-I HIGH SENSITIVE BASELINE + 1HR (06/11/2024 2:10 PM CDT) [facility] Troponin I High Sensitive 10 <=14 ng/L 06/11/2024 2:54 PM CDT [facility] Blood BLOOD SPECIMEN / Unknown Venipuncture / Unknown 06/11/2024 2:10 PM CDT 06/11/2024 2:22 PM CDT Montez Cason MD LAB - CHEMISTRY ORD ERABLES [address] [address], [place] [phone] * TYPE + SCREEN PANEL (06/11/2024 2:10 PM CDT) [facility] Antibody Screen NEG 06/11/2024 3:16 PM CDT [facility] BLOOD BANK LAB ABO Rh AB NEG 06/11/2024 3:16 PM CDT [facility] BLOOD BANK LAB Blood Bank BLOOD SPECIMEN / Unknown Venipuncture / Unknown 06/11/2024 2:10 PM CDT 06/11/2024 2:25 PM CDT Ulysses Crowley MD LAB - BLOOD BANK ORD ERABLES [facility] BLOOD [facility]ANK LAB [address] [place] [address], [facility] [phone] * CT ANGIO BRAIN NECK STROKE (06/11/2024 2:05 PM CDT) Anatomical Region Laterality Modality Head Computed Tomogra phy 06/11/2024 2:21 PM CDT Impressions 06/11/2024 3:20 PM CDT IMPRESSION: 1. Please refer to concurrent same-day CT brain for details non-angiographic findings. 2. No large arterial occlusions or significant stenoses identified in the head or neck. 3. Heterogeneous nodule in the right lobe of thyroid gland measuring up to 2.5 cm. If clinically indicated, this can be further evaluated with a thyroid sonogram. > Dictated by Alexi Garsia MD (Paste Up Artist), 06/11/2024 2:31 PM. I, Christian Bennett MD have personally reviewed and interpreted this examination/study. > Interpreting Provider: Christian Bennett MD on 06/11/2024 3:20 PM Narrative 06/11/2024 3:20 PM CDT PROCEDURE: CT ANGIO BRAIN NECK STROKE DATE/TIME OF EXAM: 06/11/2024 2:13 PM CLINICAL INFORMATION: None relevant/not provided if blank. Indication: Code Stroke Additional History: EXAMINATION: 1. Computed tomographic (CT) angiography of the head with contrast 2. CT angiography of the neck with contrast TECHNIQUE: CT angiography of the head and neck was obtained after the uneventful administration of intravenous contrast. Three dimensional postprocessing was performed by the technologist and sent to the workstation for review. CONTRAST: IOPAMIDOL 76 % IV SOLN:75 mL COMPARISON: Same day CT brain 06/11/2024 FINDINGS: Non-angiographic findings: Redemonstration of large acute intraventricular hemorrhage in the right lateral ventricle with a small extension into the left lateral, third and fourth ventricles. Please refer to same-day concurrent CT of the brain for detailed non-angiographic findings. Levocurvature of the cervical spine. There is slightly exaggerated lordosis of the cervical spine. Multilevel degenerative changes in the cervical spine. There is a heterogeneous nodule in the right lobe of thyroid gland measuring up to 2.5 cm. Angiographic findings: Neck: There is atherosclerotic disease of the aortic arch. The configuration of the brachiocephalic vessels is typical. There is scattered atherosclerotic calcification of the innominate and subclavian arteries. There is scattered atherosclerotic disease in the right common carotid artery, the right carotid bifurcation and origin and the distal portion of the right internal carotid artery. No hemodynamically significant stenosis is noted in the right common and internal carotid arteries. There is scattered atherosclerotic disease in the left common carotid artery, the left carotid bifurcation and origin and the distal portion of the left internal carotid artery. No hemodynamically significant stenosis is noted in the left common and internal carotid arteries. Other than mild focal stenosis at their origins due to atherosclerotic disease, the cervical vertebral arteries are patent. There is dominance of the left vertebral artery. Head: There is atherosclerotic disease involving the distal internal carotid arteries without significant focal stenosis. The anterior cerebral arteries are patent. The middle cerebral arteries are patent. The posterior cerebral arteries are patent. There is atherosclerotic disease involving the distal vertebral arteries without significant focal stenosis. The dominant left vertebral artery forms the basilar artery which is patent. No aneurysms, spot sign, or signs of a high flow vascular malformation are identified. Procedure Note Christian Bennett MD - 06/11/2024 PROCEDURE: CT ANGIO BRAIN NECK STROKE DATE/TIME OF EXAM: 06/11/2024 2:13 PM CLINICAL INFORMATION: None relevant/not provided if blank. Indication: Code Stroke Additional History: EXAMINATION: 1. Computed tomographic (CT) angiography of the head with contrast 2. CT angiography of the neck with contrast TECHNIQUE: CT angiography of the head and neck was obtained after the uneventful administration of intravenous contrast. Three dimensional postprocessing was performed by the technologist and sent to the workstation for review. CONTRAST: IOPAMIDOL 76 % IV SOLN:75 mL COMPARISON: Same day CT brain 06/11/2024 FINDINGS: Non-angiographic findings: Redemonstration of large acute intraventricular hemorrhage in the right lateral ventricle with a small extension into the left lateral, thirdand fourth ventricles. Please refer to same-day concurrent CT of the brainfor detailed non-angiographic findings. Levocurvature of the cervical spine. There is slightly exaggeratedlordosis of the cervical spine. Multilevel degenerative changes in the cervical spine. There is a heterogeneous nodule in the right lobe of thyroid gland measuring up to 2.5 cm. Angiographic findings: Neck: There is atherosclerotic disease of the aortic arch. The configurationof the brachiocephalic vessels is typical. There is scatteredatherosclerotic calcification of the innominate and subclavian arteries. There isscattered atherosclerotic disease in the right common carotid artery, the right carotid bifurcation and origin and the distal portion of the rightinternal carotid artery. No hemodynamically significant stenosis is noted in the right common and internal carotid arteries. There is scattered atherosclerotic disease in the left common carotid artery, the leftcarotid bifurcation and origin and the distal portion of the left internalcarotid artery. No hemodynamically significant stenosis is noted in the leftcommon and internal carotid arteries. Other than mild focal stenosis at their origins due to atherosclerotic disease, the cervical vertebral arteriesare patent. There is dominance of the left vertebral artery. Head: There is atherosclerotic disease involving the distal internal carotid arteries without significant focal stenosis. The anterior cerebralarteries are patent. The middle cerebral arteries are patent. The posterior cerebral arteries are patent. There is atherosclerotic disease involving the distal vertebral arteries without significant focal stenosis. The dominant left vertebral artery forms the basilar artery which is patent.No aneurysms, spot sign, or signs of a high flow vascular malformation are identified. IMPRESSION: 1. Please refer to concurrent same-day CT brain for details non-angiographic findings. 2. No large arterial occlusions or significant stenoses identified inthe head or neck. 3. Heterogeneous nodule in the right lobe of thyroid gland measuring upto 2.5 cm. If clinically indicated, this can be further evaluated with a thyroid sonogram. > Dictated by Alexi Garsia MD (Paste Up Artist), 06/11/2024 2:31 PM. I, Christian Bennett MD have personally reviewed and interpreted this examination/study. > Interpreting Provider: Christian Bennett MD on 06/11/2024 3:20 PM Ulysses Crowley MD CT ORDERABLES * (ABNORMAL) CREATININE - POCT INTERFACED (06/11/2024 1:58 PM CDT) Creatinine POCT 0.59 0.30 - 1.30 mg/dL 06/11/2024 2:24 PM CDT [facility] eGFR 87(L) >=90 mL/min/1.7 3 m2 06/11/2024 2:24 PM CDT [facility] Blood BLOOD SPECIMEN / Unknown 06/11/2024 1:58 PM CDT 06/11/2024 2:24 PM CDT Provider Unknown LAB - POINT OF CARE ORDERABLES Performing Organization Address City/State/[facility] Co de Phone Number [facility] [address] [place] [address], [facility] [phone] * CT BRAIN - Stroke (06/11/2024 1:52 PM CDT) Anatomical Region Laterality Modality Head Computed Tomogra phy 06/11/2024 2:00 PM CDT Impressions 06/11/2024 2:20 PM CDT IMPRESSION: 1. A large amount of acute intraventricular hemorrhage in the right lateral ventricle with a small amount of extension into the left lateral, third and fourth ventricles. 2. Chronic small vessel ischemic disease of the brain with cerebral volume loss. 3. 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 These findings were discussed in detail with the patient's care provider, Dr. Munroe by Dr. Bennett via telephone at 06/11/2024 2:18 PM with readback comprehension and verification. > Interpreting Provider: Christian Bennett MD on 06/11/2024 2:20 PM Narrative 06/11/2024 2:20 PM CDT PROCEDURE: CT BRAIN STROKE, DATE/TIME OF EXAM: 06/11/2024 2:05 PM, LOCATION [facility] INDICATION: Code Stroke ADDITIONAL CLINICAL INFORMATION: Ordering Provider Reason For Exam: Technologist Note: Additional: TECHNIQUE: CT of the head was performed without contrast according to standard protocol. CONTRAST: COMPARISON: No prior study is available for comparison at the time of this dictation. FINDINGS: There is a large amount of acute intraventricular hemorrhage in the right lateral ventricle with a small amount of extension into the left lateral, third and fourth ventricles. The source of hemorrhage is unknown but could be from the periventricular white matter. There is mild cerebral volume loss with associated ex vacuo ventricular dilatation. The basal cisterns are patent. No midline shift. There is a chronic infarct in the right occipital lobe in the right STOREROOM KEEPER territory. Moderate periventricular white matter hypoattenuation is nonspecific, but can be seen in the setting of chronic small vessel ischemic disease. There is atherosclerotic calcification of the carotid siphons. The visualized portions of the orbits, paranasal sinuses, and mastoids appear normal. No acute calvarial fracture is identified. Procedure Note Christian Bennett MD - 06/11/2024 PROCEDURE: CT BRAIN STROKE, DATE/TIME OF EXAM: 06/11/2024 2:05 PM, LOCATION [facility] INDICATION: Code Stroke ADDITIONAL CLINICAL INFORMATION: Ordering Provider Reason For Exam: Technologist Note: Additional: TECHNIQUE: CT of the head was performed without contrast according to standard protocol. CONTRAST: COMPARISON: No prior study is available for comparison at the time ofthis dictation. FINDINGS: There is a large amount of acute intraventricular hemorrhage in theright lateral ventricle with a small amount of extension into the leftlateral, third and fourth ventricles. The source of hemorrhage is unknown butcould be from the periventricular white matter. There is mild cerebral volume loss with associated ex vacuo ventricular dilatation. The basal cisterns are patent. No midline shift. There is a chronic infarct in the right occipital lobe in the right STOREROOM KEEPER territory. Moderate periventricularwhite matter hypoattenuation is nonspecific, but can be seen in the setting of chronic small vessel ischemic disease. There is atherosclerotic calcification of the carotid siphons. The visualized portions of the orbits, paranasal sinuses, and mastoids appear normal. No acute calvarial fracture is identified. IMPRESSION: 1. A large amount of acute intraventricular hemorrhage in the rightlateral ventricle with a small amount of extension into the left lateral, thirdand fourth ventricles. 2. Chronic small vessel ischemic disease of the brain with cerebralvolume loss. 3. 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 These findings were discussed in detail with the patient's careprovider, Dr. Munroe by Dr. Bennett via telephone at 06/11/2024 2:18 PM withreadback comprehension and verification. > Interpreting Provider: Christian Bennett MD on 06/11/2024 2:20 PM Ulysses Crowley MD CT ORDERABLES from Last 3 Months Advance Directives * LIMITED RESUSCITATION-PRIOR AND AFTER ARREST (Latest Code Status on File) Date Activated Date Inactivated Comments 06/11/2024 2:54 PM 06/14/2024 4:11 PM Question Answer Comments Limited Resuscitation: No Intubation, No Invasiv e Ventilation * Full Code Date Activated Date Inactivated Comments 06/11/2024 2:03 PM 06/11/2024 2:54 PM Care Teams Certified Ski Patroller Relationship Specialty Start Date End Date None, Physician PCP - General 06/11/24
--- OUTSIDE RECORDS SUMMARY | 2024-06-17 11:54 | XMS_ITS | Encounter Summary ---
Author Organization [facility] Facility Care Team Providers Care Structural Steel Engineer Name Role Phone Clive Nascimento DO Primary Care Provider [phone] Raji Hernández MD Primary Care Provider [phone] Encounter Details Date Type Department Care Team (Latest Contact Info) Description 06/11/2016 Orders Only [facility] ProviderDarleen MD [address] [place] [id number] Social History Tobacco Use Types Packs/Day Years Used Date Smoking Tobacco: Never Assessed Comments Unknown Sex and Gender Information Value Date Recorded Sex Assigned at Not on file Legal Sex 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
--- OUTSIDE RECORDS SUMMARY | 2024-06-17 11:54 | XMS_ITS | Clinical Summary ---
Author Organization Unknown Care Team Providers Care Proofer Apprentice Name Role Phone KIERAN KIDD, SANDRITA Unavailable Unavailable ANDRY NOVA, SUMMER Unavailable Unavailable Payers Payer Name Policy Type Policy Number Effective Date Expira tion Date MEDICARE - [place] - PDGM [id number] Problems Condition Name Condition Details Condition Category Status Onset Date Resolution Date Last Treatment Date Treating Clinician Comments NONTRAUMATIC INTRACEREBRA L HEMORRHAGE, UNSPECIFIED Active 06-11 00:00: 00 Allergies, Adverse Reactions, Alerts Allergy Name Allergy Type Status Severity Reaction(s) Onset Date Inactive Date Treating Clinician Comments AMLODIPINE Propensity to adverse reactions Active 06-15 12:16: 30 AMIODARONE Propensity to adverse reactions Active 06-15 12:16: 40 Immunizations Ordered Immunization Name Filled Immunization Name Date Status Comments Refusal Reason REFUSED PNEUMONIA, PPV 2024-06-15 00:00:00 INFLUENZA, TIV (INACTIVATED) 2024-01-17 00:00:00 Vital Signs Vital Name Observation Time Observation Value Commen ts Temperature 2024-06-15 12:31:00.000 97.4 [degF] BMI (%) 2024-06-15 12:31:00.000 23 kg/m2 Height 2024-06-15 12:31:00.000 64 [in_us] Pulse 2024-06-15 12:31:00.000 65 /min O2 Saturation (%) 2024-06-15 12:31:00.000 95 % Respirations 2024-06-15 12:31:00.000 20 /min Weight (lbs) 2024-06-15 12:31:00.000 135 [lb_av] Systolic Blood Pressure 2024-06-15 12:31:00.000 142 mm [Hg] Diastolic Blood Pressure 2024-06-15 12:31:00.000 88 mm [Hg] Plan of Treatment Planned Activity Planned Date Details Comments Future Scheduled Test SKILLED NU RSE TO EVALUATE PATIENT, IDENTIFY PRIMARY AND CO-MORBID CONDITIONS CODED PER CODING GUIDELINES, AND DEVELOP PATIENT SPECIFIC PLAN OF CARE THAT INCLUDES PATIENT GOAL FOR HOME HEALTH. [code = SKILLED NURSE TO EVALUATE PATIENT, IDENTIFY PRIMARY AND CO-MORBID CONDITIONS CODED PER CODING GUIDELINES, AND DEVELOP PATIENT SPECIFIC PLAN OF CARE THAT INCLUDES PATIENT GOAL FOR HOME HEALTH.] Future Scheduled Test SKILLED NU RSE TO REVIEW PATIENT MEDICATIONS (PRESCRIPTION/OTC). INSTRUCT PATIENT/CAREGIVER ON ALL MEDICATIONS INCLUDING PURPOSE, WHEN TO TAKE, IMPORTANCE OF MEDICATION ADHERENCE, MONITORING OF EFFECTIVENESS, ADVERSE DRUG REACTIONS, POSSIBLE SIDE EFFECTS, AND WHEN TO NOTIFY AGENCY OR PHYSICIAN/PROVIDER OF ANY CONCERNS. [code = SKILLED NURSE TO REVIEW PATIENT MEDICATIONS (PRESCRIPTION/OTC). INSTRUCT PATIENT/CAREGIVER ON ALL MEDICATIONS INCLUDING PURPOSE, WHEN TO TAKE, IMPORTANCE OF MEDICATION ADHERENCE, MONITORING OF EFFECTIVENESS, ADVERSE DRUG REACTIONS, POSSIBLE SIDE EFFECTS, AND WHEN TO NOTIFY AGENCY OR PHYSICIAN/PROVIDER OF ANY CONCERNS.] Future Scheduled Test PATIENT TORRES S A RISK OF HOSPITALIZATION AND ED USE. SKILLED NURSE TO ESTABLISH SUPPORT MEASURES TO MINIMIZE RISK OF HOSPITALIZATION AND ED USE, AND INSTRUCT PATIENT/CAREGIVER ON METHODS TO REDUCE AVOIDABLE HOSPITALIZATION AND ED USE. [code = PATIENT HAS A RISK OF HOSPITALIZATION AND ED USE. SKILLED NURSE TO ESTABLISH SUPPORT MEASURES TO MINIMIZE RISK OF HOSPITALIZATION AND ED USE, AND INSTRUCT PATIENT/CAREGIVER ON METHODS TO REDUCE AVOIDABLE HOSPITALIZATION AND ED USE.] Future Scheduled Test SKILLED NU RSE TO PROVIDE INSTRUCTION TO PATIENT/CAREGIVER RELATED TO DISCHARGE PLANNING. [code = SKILLED NURSE TO PROVIDE INSTRUCTION TO PATIENT/CAREGIVER RELATED TO DISCHARGE PLANNING.] Future Scheduled Test SKILLED NU RSE TO PERFORM ENVIRONMENTAL SAFETY RISK ASSESSMENT AND FALL RISK ASSESSMENT AND PROVIDE INSTRUCTION TO IMPLEMENT ENVIRONMENTAL SAFETY AND FALL PREVENTION STRATEGIES THROUGHOUT THE CERTIFICATION PERIOD. SKILLED NURSE WILL MAINTAIN SITUATIONAL AWARENESS AND WILL NOTIFY CLINICAL EMPLOYMENT TRAINER AND PHYSICIAN/PROVIDER WITH ANY CHANGE IN CONDITION. [code = SKILLED NURSE TO PERFORM ENVIRONMENTAL SAFETY RISK ASSESSMENT AND FALL RISK ASSESSMENT AND PROVIDE INSTRUCTION TO IMPLEMENT ENVIRONMENTAL SAFETY AND FALL PREVENTION STRATEGIES THROUGHOUT THE CERTIFICATION PERIOD. SKILLED NURSE WILL MAINTAIN SITUATIONAL AWARENESS AND WILL NOTIFY CLINICAL EMPLOYMENT TRAINER AND PHYSICIAN/PROVIDER WITH ANY CHANGE IN CONDITION.] Future Scheduled Test SKILLED NU RSE FOR OBSERVATION AND ASSESSMENT OF PATIENTS PAIN LEVEL AND EFFECTIVENESS OF PAIN MANAGEMENT REGIMEN. SKILLED NURSE TO INSTRUCT PATIENT/CAREGIVER REGARDING PHARMACOLOGIC AND NON-PHARMACOLOGIC PAIN CONTROL MEASURES. SKILLED NURSE TO REPORT TO PHYSICIAN IF PAIN IS UNCONTROLLED WITH CURRENT PAIN MANAGEMENT REGIMEN. [code = SKILLED NURSE FOR OBSERVATION AND ASSESSMENT OF PATIENTS PAIN LEVEL AND EFFECTIVENESS OF PAIN MANAGEMENT REGIMEN. SKILLED NURSE TO INSTRUCT PATIENT/CAREGIVER REGARDING PHARMACOLOGIC AND NON-PHARMACOLOGIC PAIN CONTROL MEASURES. SKILLED NURSE TO REPORT TO PHYSICIAN IF PAIN IS UNCONTROLLED WITH CURRENT PAIN MANAGEMENT REGIMEN.] Future Scheduled Test SKILLED NU RSE TO ASSESS PATIENT'S SKIN INTEGRITY AND INSTRUCT PATIENT/CAREGIVER ON MEASURES TO PREVENT PRESSURE ULCERS. [code = SKILLED NURSE TO ASSESS PATIENT'S SKIN INTEGRITY AND INSTRUCT PATIENT/CAREGIVER ON MEASURES TO PREVENT PRESSURE ULCERS.] Future Scheduled Test SKILLED NU RSE FOR O/A, TEACHING, AND MANAGEMENT OF HTN, AFIB [code = SKILLED NURSE FOR O/A, TEACHING, AND MANAGEMENT OF HTN, AFIB] Future Scheduled Test SKILLED NU RSE TO PROVIDE TEACHING ON SIGNS AND SYMPTOMS AND MANAGEMENT OF HYPERTENSION. [code = SKILLED NURSE TO PROVIDE TEACHING ON SIGNS AND SYMPTOMS AND MANAGEMENT OF HYPERTENSION.] Future Scheduled Test SKILLED NU RSE TO INSTRUCT PATIENT/CAREGIVER ON SIGNS AND SYMPTOMS, RISK FACTORS, COMPLICATIONS, AND MANAGEMENT OF ATRIAL FIBRILLATION. [code = SKILLED NURSE TO INSTRUCT PATIENT/CAREGIVER ON SIGNS AND SYMPTOMS, RISK FACTORS, COMPLICATIONS, AND MANAGEMENT OF ATRIAL FIBRILLATION.] Future Scheduled Test SKILLED NU RSE FOR O/A TO IDENTIFY CHANGES ASSOCIATED WITH CVA AND PROVIDE INSTRUCTION RELATED TO SAFETY MEASURES TO PREVENT INJURY SECONDARY TO IMPAIRED NEUROLOGICAL STATUS. SKILLED NURSE TO REPORT SIGNIFICANT CHANGES OF NEUROLOGIC STATUS TO PHYSICIAN FOR EARLY INTERVENTION. [code = SKILLED NURSE FOR O/A TO IDENTIFY CHANGES ASSOCIATED WITH CVA AND PROVIDE INSTRUCTION RELATED TO SAFETY MEASURES TO PREVENT INJURY SECONDARY TO IMPAIRED NEUROLOGICAL STATUS. SKILLED NURSE TO REPORT SIGNIFICANT CHANGES OF NEUROLOGIC STATUS TO PHYSICIAN FOR EARLY INTERVENTION.] Future Scheduled Test SKILLED NU RSE FOR O/A AND SKILLED TEACHING RELATED TO SIGNS AND SYMPTOMS AND MANAGEMENT OF GENERALIZED WEAKNESS [code = SKILLED NURSE FOR O/A AND SKILLED TEACHING RELATED TO SIGNS AND SYMPTOMS AND MANAGEMENT OF GENERALIZED WEAKNESS ] Future Scheduled Test SKILLED NU RSE FOR O/A AND SKILLED TEACHING RELATED TO SIGNS AND SYMPTOMS OF INFECTION AND INFECTION CONTROL MEASURES. [code = SKILLED NURSE FOR O/A AND SKILLED TEACHING RELATED TO SIGNS AND SYMPTOMS OF INFECTION AND INFECTION CONTROL MEASURES.] Future Scheduled Test SKILLED NU RSE TO INSTRUCT PATIENT/CAREGIVER ON PREVENTION OF SEPSIS, AND SIGNS AND SYMPTOMS OF SEPSIS TO REPORT. [code = SKILLED NURSE TO INSTRUCT PATIENT/CAREGIVER ON PREVENTION OF SEPSIS, AND SIGNS AND SYMPTOMS OF SEPSIS TO REPORT.] Future Scheduled Test [facility]EPT ORDERS FROM THE FOLLOWING PHYSICIANS: DR JOSE CASTORENA [code = HOME HEALTH AGENCY MAY ACCEPT ORDERS FROM THE FOLLOWING PHYSICIANS: DR JOSE CASTORENA] Future Scheduled Test PHYSICAL T HERAPIST TO EVALUATE PATIENT FOR STRENGTH AND GAIT TRAINING [code = PHYSICAL THERAPIST TO EVALUATE PATIENT FOR STRENGTH AND GAIT TRAINING ] Future Scheduled Test OCCUPATION AL THERAPIST TO EVALUATE PATIENT FOR ADL DEFICITS [code = OCCUPATIONAL THERAPIST TO EVALUATE PATIENT FOR ADL DEFICITS ] Goal Patient Goal - T O GET STRONGER AND TO WALK AGAIN WITHOUT WALKER Goal Provider Goal - A PLAN OF CARE WILL BE ESTABLISHED THAT MEETS PATIENT'S LONG TERM NEEDS AND INCLUDES PATIENT GOAL FOR HOME HEALTH. Goal Provider Goal - PATIENT/CAREGIVER WILL VERBALIZE UNDERSTANDING OF EDUCATION PROVIDED ON MEDICATIONS BY THE END OF THE CERTIFICATION PERIOD. Goal Provider Goal - PATIENT WILL HAVE SUPPORT MEASURES ESTABLISHED TO PREVENT HOSPITALIZATION AND ED USE AND PATIENT/CAREGIVER WILL VERBALIZE/DEMONSTRATE METHODS TO REDUCE AVOIDABLE HOSPITALIZATION AND ED USE BY END OF EPISODE. Goal Provider Goal - PATIENT/CAREGIVER WILL VERBALIZE UNDERSTANDING OF DISCHARGE PLANNING INSTRUCTIONS BY DATE OF DISCHARGE. Goal Provider Goal - PATIENT/CAREGIVER WILL VERBALIZE/DEMONSTRATE EFFECTIVE ENVIRONMENTAL SAFETY AND FALL PREVENTION STRATEGIES, WILL REMAIN SAFE IN THE COMMUNITY, AND WILL BE FREE OF DANGER TO SELF AND OTHERS THROUGHOUT THE CERTIFICATION PERIOD. Goal Provider Goal - PATIENT/CAREGIVER WILL DEMONSTRATE UNDERSTANDING OF PHARMACOLOGIC AND NONPHARMACOLOGIC PAIN CONTROL MEASURES AND PATIENT WILL HAVE IMPROVEMENT IN PAIN INTERFERING WITH ACTIVITY EVIDENCED BY PAIN CONTROLLED AT LEVEL OF 5 OR LESS BY END OF CERTIFICATION PERIOD. Goal Provider Goal - PATIENT/CAREGIVER WILL VERBALIZE UNDERSTANDING OF PRESSURE ULCER PREVENTION BY END OF THE EPISODE. Goal Provider Goal - PATIENT/CAREGIVER WILL VERBALIZE/DEMONSTRATE MANAGEMENT OF CARDIAC DISEASE PROCESS AND EXACERBATIONS WILL BE IDENTIFIED AND PROMPTLY REPORTED THROUGHOUT THE CERTIFICATION PERIOD. Goal Provider Goal - PATIENT/CAREGIVER WILL VERBALIZE SIGNS AND SYMPTOMS OF HYPERTENSION AND WILL BE ABLE TO DEMONSTRATE ABILITY TO MANAGE EXACERBATION BY END OF THE EPISODE. Goal Provider Goal - PATIENT/CAREGIVER WILL VERBALIZE UNDERSTANDING OF SIGNS AND SYMPTOMS, COMPLICATIONS, AND MANAGEMENT OF ATRIAL FIBRILLATION THROUGHOUT THE CERTIFICATION PERIOD. Goal Provider Goal - CHANGES IN NEUROLOGIC STATUS WILL BE IDENTIFIED AND REPORTED TO THE PHYSICIAN FOR PROMPT INTERVENTION OF ASSOCIATED RISK. PATIENT/CAREGIVER WILL VERBALIZE/DEMONSTRATE APPROPRIATE SAFETY MEASURES TO PREVENT INJURY BY THE END OF THE CERTIFICATION PERIOD. Goal Provider Goal - PATIENT/CAREGIVER WILL VERBALIZE UNDERSTANDING OF MUSCULOSKELETAL DISEASE INCLUDING SIGNS AND SYMPTOMS, MANAGEMENT, AND PRESCRIBED TREATMENT REGIMEN BY END OF EPISODE. Goal Provider Goal - PATIENT/CAREGIVER WILL VERBALIZE/DEMONSTRATE UNDERSTANDING OF S/S OF INFECTION AND INFECTION CONTROL MEASURES. SIGNS AND SYMPTOMS OF INFECTION WILL BE IDENTIFIED AND PHYSICIAN NOTIFIED FOR PROMPT INTERVENTION THROUGHOUT THE CERTIFICATION PERIOD. Goal Provider Goal - PATIENT WILL BE FREE FROM INFECTION AND PATIENT/CAREGIVER WILL VERBALIZE UNDERSTANDING OF SIGNS AND SYMPTOMS AND METHODS TO PREVENT SEPSIS BY END OF THE EPISODE. Goal Provider Goal - ADDITIONAL ORDERS WILL BE RECEIVED FROM ALTERNATE PHYSICIAN IN A TIMELY MANNER THROUGHOUT THE CERTIFICATION PERIOD. Goal Provider Goal - A PHYSICAL THERAPY EVALUATION TO BE COMPLETED WITH RECOMMENDATIONS AND/OR WRITTEN PLAN OF TREATMENT ESTABLISHED FOR PHYSICIANS SIGNATURE. Goal Provider Goal - OCCUPATIONAL THERAPY EVALUATION TO BE COMPLETED WITH RECOMMENDATIONS AND WRITTEN PLAN OF TREATMENT ESTABLISHED FOR THE PHYSICIANS SIGNATURE. Progress Notes Progress Notes <paragraph>[Visit Date: 2024 by CONRADO WILDE RN]:</paragraph><paragraph>PATIENT SEEN TODAY FOR SOC. ALERT AND ORIENTED TIMES 4, PLEASANT AND COOPERATIVE WITH TODAY'S VISIT. 88 YEAR OLD FEMALE RECENTLY HOSPITALIZED FOR CVA. RESIDES AT [facility]. DAUGHTER LIVES NEXT DOOR IN [facility]. PMH INCLUDES HTN, OA, DYSPHAGIA, DEPRESSION, ANXIETY, HLD. REVIEWED [facility], PATIENTS RIGHTS AND RESPONSIBILITIES, CALL US FIRST AND PATIENT SATISFACTION ACTION PLANS, EMERGENCY PREPAREDNESS AND PATIENT INSTRUCTIONS. CONSENT SIGNED BY PATIENT. VITAL SIGNS OBTAINED AND WITHIN NORMAL LIMITS, LUNG SOUNDS CTA, BOWEL SOUNDS PRESENT. OASIS WALK COMPLETED WITH WALKER. SKIN ASSESSED AND NO AREAS OF CONCERN NOTED. AFTER ASSESSMENT, SKILLED NURSE TO SEE PATIENT 1WK1, 2WK1, 1WK7 FOR EDUCATION AND ASSESSMENTS. PHYSICAL THERAPY TO EVALUATE AND TREAT FOR STRENGTH AND GAIT TRAINING. OT TO EVAL FOR ADL DEFICITS. DISCUSSED PLAN FOR NEXT VISIT AND TO CALL [facility] FIRST WITH ANY QUESTIONS OR CONCERNS. PATIENT AGREEABLE TO PLAN OF CARE. MEDICATION PROFILE REVIEWED AND PATIENT EDUCATED ON NEW MEDS. CVA, FALL ACTION PLAN UTILIZED FOR EDUCATION THIS VISIT WITH FOCUS ON ?EVERYDAY? BOX. PATIENT AND DAUGHTER WERE RECEPTIVE TO EDUCATION AND ABLE TO PROVIDE TEACH-BACK OF EDUCATION PROVIDED. NEXT VISIT FOCUS SHOULD BE ON ?RED ZONE? BOX. SPOKE TO AKIRA AT 1258 TO CONFIRM MEDICATIONS AND DISCUSS POC. SANDRITA ALCARAZ IS AGREEABLE TO POC AND AGREEABLE TO SIGN HH ORDERS.</paragraph> Encounters Start Date/Time End Date/Time Encounter Type Admission Type Attending Clinicians Care Facility Care Department Encounter ID Discharge Date Discharge Status Discharge Condition Discharge Reason Percent Goals Met 2024-06-15 00:00:00 2024-08-13 00:00:00 Outpatient NEW ADMISSION [facility] [id number] [id number]
--- OUTSIDE RECORDS SUMMARY | 2024-06-17 11:54 | XMS_ITS | Encounter Summary ---
Author Organization 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 Historical Provider Final Res ult documented in this encounter Visit Diagnoses Not on filedocumented in this encounter Care Teams Soot Blower Relationship Specialty Start Date End Date Clive Nascimento DO PCP - General Internal Medicine 05/27/22 08/17/22 Raji Hernández MD PCP - General Family Practice 08/18/22 documented as of this encounter
--- OUTSIDE RECORDS SUMMARY | 2024-06-17 11:54 | XMS_ITS | Encounter Summary ---
Author Organization [facility] Facility Care Team Providers Care Timber Feller Name Role Phone Clive Nascimento DO Primary Care Provider [phone] Raji Hernández MD Primary Care Provider [phone] Encounter Details Date Type Department Care Team (Latest Contact Info) Description 02/05/2016 Orders Only [facility] CLINCONV ProviderDarleen MD [address] [place] [id number] Social History Tobacco Use Types Packs/Day Years Used Date Smoking Tobacco: Never Assessed Comments Unknown Sex and Gender Information Value Date Recorded Sex Assigned at Not on file Legal 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
--- OUTSIDE RECORDS SUMMARY | 2024-06-17 11:54 | XMS_ITS ---
Author Name Azam Clive Lanier Address [address] , [address] [place] [address] Phone [phone] [facility] Address [address] [place] [address] Phone [phone] Care Team Providers Care General Manager Farm Name Role Phone Andrew Nascimentorajat Lanier Unavailable [phone] Heather Frazier Unavailable Lang Alba Unavailable Functional Status Mental Status Allergies and Intolerances Encounters Medications Problems Reason for Referral Past Medical History
--- NOTE | 2024-06-17 12:14 | ED.GENADULT ---
HPI - General Adult General Chief complaint: Weakness Stated complaint: weak Time Seen by Provider: 06/17/24 11:47 History of Present Illness HPI narrative: 88-year-old female with history of AFib and a recent intraventricular hemorrhage. Patient was diagnosed with an injury of reticular hemorrhage on Tuesday and ultimately got transferred to [facility]. Family states that the patient had improvement of her neuro status over Tuesday and was discharged back home on . Patient does live in a assisted living situation at [place]. Family states that she has been back at the facility she has had worsening mental status. A ground level fall as suspected to have happened today as patient was found lying on the ground. Is more sedate but does still answer questions. Related Data Home Medications ?Medication ?Instructions ?Recorded ?Confirmed ?Last Taken ?Type magnesium oxide 250 mg PO DAILY 05/26/21 06/17/24 05/26/22 09:00 History calcium 600 mg (as carbonate)-vit 1 tablet PO DAILY 12/02/21 06/17/24 05/26/22 09:00 History D3 20 mcg (800 unit) chewable tablet (Caltrate plus D) lymrvntwkrnz-[id number]-fsgdtw tablet 1 tablet PO DAILY 12/02/21 06/17/24 05/26/22 09:00 History methylcellulose (laxative) 500 mg 500 mg PO DAILY PRN Constipation 05/27/22 06/17/24 Unknown History tablet (Citrucel) Allergies Allergy/AdvReac Type Severity Reaction Status Date / Time amlodipine AdvReac Rash Verified 06/17/24 11:24 Review of Systems Review of Systems: All systems reviewed & are unremarkable except as noted in HPI and below [facility] Past Medical History Medical History (Updated 06/17/24 @ 19:04 by Darren Marti MD) Acute stroke due to ischemia Goiter Atrial fibrillation Cerumen impaction Hyperlipidemia Chronic GERD Hypertension Surgical History Surgical History History of carpal tunnel release H/O cataract extraction Hx of tonsillectomy History of appendectomy Family History Family History Father Alcohol abuse Heart disease Mother Diabetes mellitus Hypertension Social History Social History Social History: the patient is and lives home alone. She is pretty functional does not use any assisted devices such as a cane or walker. She walks independently. 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 Code status full code Smoking status: Never smoker Alcohol intake: former Drinks per week: 9 Alcohol use details: [place] Substance use: never Substance use type: does not use Lack of Transportation: No Lack of Food: Never True Current Housing: I Have Housing Concerned About Future Housing: No Difficulty Paying Gas/Electric Bills: No Difficulty Paying for Meds: No Currently Unemployed: No Education: High School Diploma/GED Difficulty w/ Childcare or Family Care: No Gender identity (if verbalized by the patient): Female Spiritual care concerns: No (bahai) Agree to blood products: Yes Exam Narrative: APPEARANCE: Ill-appearing HEAD: normocephalic, atraumatic. EYES: PERRLA/EOMI, conjunctivae clear. NOSE: Normal no drainage EARS:TMS clear with good light reflex. THROAT: Pharynx clear, no exudate. NECK: Supple. No adenopathy, no masses. RESPIRATORY: Airway patent, respirations nonlabored. Clear to auscultation bilaterally, no rales, rhonchi, wheezing. CARDIOVASCULAR: Regular rate and rhythm without murmurs rubs or gallops. ABDOMINAL: Soft, nontender, nondistended, normal bowel sounds MUSCULOSKELETAL: Moves all extremities. Strength/ROM intact, No edema, No calf tenderness. NEURO: Alert. Cranial nerves II through XII intact. Good gait. Good coordination SKIN: Warm, dry. Normal Color Course Vital Signs Vital signs: Vital Signs Temperature 97.9 F 06/17/24 11:19 Pulse Rate 71 06/17/24 11:19 Respiratory Rate 20 06/17/24 11:19 Blood Pressure 166/83 H 06/17/24 11:19 Pulse Oximetry 98 06/17/24 11:19 Oxygen Delivery Room Air 06/17/24 11:19 Temperature 97.9 F 06/17/24 11:19 Pulse Rate 86 06/17/24 16:08 Respiratory Rate 19 06/17/24 16:08 Blood Pressure 159/84 H 06/17/24 16:08 Pulse Oximetry 96 06/17/24 16:08 Oxygen Delivery Room Air 06/17/24 11:19 Medical Decision Making MDM Narrative Medical decision making narrative: 80-year-old female presented emergency department for evaluation of worsening mental status and a suspected ground level fall. Evaluation patient is moving all limbs equally but is globally weak with no focal weakness. Patient is alert and is able to answer questions. Patient is currently afebrile but does have a leukocytosis of 14 and hemoglobin of 12.9. Patient does have a sodium of 123 anion gap of 15 BUN of 18. Majority of labs are still pending at this time. CT brain does show that the patient has a new acute subarachnoid hemorrhage. Patient was a full code but I did discuss this with the family and they are willing to make her DNI DNR. They are unwilling to rule out any surgical intervention at this time and they are requesting transfer to [facility] again. I did discuss the case with the ED physician and Neurosurgery and patient was accepted for transfer. Patient will go by ALS. Patient was treated with a dose of hydralazine to help keep her blood pressure below a target of 140 systolic. Patient had been on Xarelto but she was treated with Kcentra at time transfer on Tuesday and this was not restarted. Differential Diagnosis Differential Diagnosis: Subdural hematoma, cerebral hemorrhage intraventricular hemorrhage Vital Signs Vital Signs: Vital Signs Temperature 97.9 F 06/17/24 11:19 Pulse Rate 71 06/17/24 11:19 Respiratory Rate 20 06/17/24 11:19 Blood Pressure 166/83 H 06/17/24 11:19 Pulse Oximetry 98 06/17/24 11:19 Oxygen Delivery Room Air 06/17/24 11:19 Temperature 97.9 F 06/17/24 11:19 Pulse Rate 86 06/17/24 16:08 Respiratory Rate 19 06/17/24 16:08 Blood Pressure 159/84 H 06/17/24 16:08 Pulse Oximetry 96 06/17/24 16:08 Oxygen Delivery Room Air 06/17/24 11:19 Lab Data Lab results reviewed: Yes I reviewed the patient's lab results. 06/17/24 12:33 06/17/24 12:33 Labs: Lab Results 06/17/24 06/17/24 06/17/24 Range/Units 12:32 12:33 12:59 WBC 14.0 H (4.5-10.0) K/mm3 RBC 4.10 L (4.2-5.4) M/mm3 Hgb 12.9 (12.0-15.0) g/dL Hct 37.2 (37.0-47.0) % MCV 90.7 (80-100) fl MCH 31.5 (26-34) pg MCHC 34.7 (32-36) g/dl RDW 12.9 (11.5-14.5) % Plt Count 209 (150-375) k/mm3 MPV 9.6 (7.4-10.4) fl Immature Gran % (Auto) 0.8 H (0-0.5) % Neut % (Auto) 84.4 H (45.5-73.1) % Lymph % (Auto) 5.4 L (18.3-44.2) % Snyder % (Auto) 9.1 H (2.6-8.5) % Eos % (Auto) 0.1 (0-4.4) % Baso % (Auto) 0.2 (0.2-1.2) % Lymph # (Auto) 0.75 L (0.9-3.2) K/mm3 Snyder # (Auto) 1.3 H (0.1-0.6) K/mm3 Eos # (Auto) 0.0 (0-0.3) K/mm3 Baso # (Auto) 0.0 (0.0-0.1) K/mm3 Abs Immat Gran (auto) 0.11 H (0.00-0.031) K/mm3 Absolute Neuts (auto) 11.8 H (1.3-6.7) K/mm3 Absolute Nucleated RBC 0.000 (0.0-0.012) K/mm3 Nucleated RBC % 0.0 (0.0-0.2) % PT Cancelled INR Cancelled APTT Cancelled Sodium 123 L (137-145) mmol/L Potassium 3.8 (3.4-5.0) mmol/L Chloride 90 L (98-107) mmol/L Carbon Dioxide 18 L (22-30) mmol/L Anion Gap 15 H (4-12) mmol/L BUN 18 H (7-17) mg/dL Creatinine 0.66 L (0.7-1.0) mg/dL Estim Creat Clear Calc 47 ml/min Estimated GFR > 60 (59 - ) Glucose 161 H (65-110) mg/dL Calcium 8.9 (8.4-10.2) mg/dL Total Bilirubin 1.8 H (0.2-1.3) mg/dL AST 26 (14-36) U/L ALT 25 (6-35) U/L Alkaline Phosphatase 55 (38-126) U/L Total Protein 7.0 (6.3-8.2) g/dL Albumin 4.2 (3.5-5.1) g/dL Urine Color Yellow (Yellow) Urine Appearance Clear (Clear) Urine pH 6.5 (5.0-9.0) Ur Specific [place] 1.015 (1.001-1.035) Urine Protein Trace (Negative) mg/dL Urine Glucose (UA) Negative (Negative) mg/dL Urine Ketones Negative (Negative) mg/dL Ur Blood (Man) Negative (Negative) Urine Nitrate Negative (Negative) Urine Bilirubin Negative (Negative) Urine Urobilinogen 1.0 (<2.0) mg/dL Add Ur Microanalysis Reviewed Leukocyte Esterase Rfl 1+ H (Negative) MELINA/UL Urine RBC 0-2 (0-2) /hpf Urine WBC 0-5 (0-3) /hpf Ur Squamous Epith Cells None seen (Few) /hpf Urine Bacteria None seen /hpf Urine Casts 0-2 Imaging Data Radiologist's impression: Impressions Head CT 06/17/24 12:14 Impression: Redemonstration of intraventricular hemorrhage, as detailed above. Interval development of acute subarachnoid hemorrhage with surrounding edema in the left occipital lobe, as detailed above. These findings were discussed with Dr. Marti at 12:20 PM on 06/17/2024 Critical Care Time Critical Care Time Critical Care Time: Yes Total Critical Care Time: 35 Discharge Plan Discharge Clinical Impression: Subarachnoid hemorrhage Patient Disposition: Acute Care Hospital Condition: Critical Patient Language: Italian Prescriptions: No Action magnesium oxide 250 mg magnesium tablet 250 mg PO DAILY clvfogbwhzmm-hjuqxwio-tghkdg Tablet 1 tablet PO DAILY Caltrate 600 plus D 600 mg-20 mcg (800 unit) tablet,chewable 1 tablet PO DAILY Citrucel 500 mg Tablet 500 mg PO DAILY PRN (Reason: Constipation) clonidine HCl 0.1 mg tablet See Rx Instructions .ROUTE .COMPLEX Qty: 270 1RF Dose Instruction: TAKE 1 TABLET BY MOUTH THREE TIMES A DAY Rx Instructions: TAKE 1 TABLET BY MOUTH THREE TIMES A DAY metoprolol tartrate 100 mg tablet See Rx Instructions .ROUTE .COMPLEX Qty: 180 1RF Dose Instruction: TAKE 1 TABLET TWICE A DAY IN THE MORNING AND EVENING Rx Instructions: TAKE 1 TABLET TWICE A DAY IN THE MORNING AND EVENING losartan 100 mg tablet See Rx Instructions .ROUTE .COMPLEX Qty: 90 1RF Dose Instruction: TAKE 1 TABLET DAILY Rx Instructions: TAKE 1 TABLET DAILY atorvastatin 80 mg tablet See Rx Instructions .ROUTE .COMPLEX Qty: 90 1RF Dose Instruction: TAKE 1 TABLET DAILY Rx Instructions: TAKE 1 TABLET DAILY famotidine 20 mg tablet 20 mg PO DAILY Qty: 90 1RF Xarelto 20 mg tablet See Rx Instructions .ROUTE .COMPLEX Qty: 90 1RF Dose Instruction: TAKE 1 TABLET BY MOUTH EVERY EVENING MUST ADMINISTER WITH EVENING MEAL Rx Instructions: TAKE 1 TABLET BY MOUTH EVERY EVENING MUST ADMINISTER WITH EVENING MEAL Follow-up/Referrals: Katey Craig APRN [Primary Care Provider] -
--- NOTE | 2024-06-17 12:39 | PCCCNOTE ---
Completed the [facility] Polst form as requested, gave the family a copy and provided a copy in the chart.dann
[2024-06-17 12:40] LABS: Basophils Percent Auto 0.2 % (0.2-1.2); Eosinophils Percent Auto 0.1 % (0-4.4); Hematocrit 37.2 % (37.0-47.0); Hemoglobin 12.9 g/dL (12.0-15.0); Immature Granulocyte Absolute 0.11 K/mm3 (0.00-0.031); Immature Granulocyte Percent A 0.8 % (0-0.5); Lymphocytes Absolute Auto 0.75 K/mm3 (0.9-3.2); Lymphocytes Percent Auto 5.4 % (18.3-44.2); Mean Corpuscular HGB Conc 34.7 g/dl (32-36); Mean Corpuscular Hemoglobin 31.5 pg (26-34); Mean Corpuscular Volume 90.7 fl (80-100); Mean Platelet Volume 9.6 fl (7.4-10.4); Monocytes Absolute Auto 1.3 K/mm3 (0.1-0.6); Monocytes Percent Auto 9.1 % (2.6-8.5); Neutrophils Absolute Auto 11.8 K/mm3 (1.3-6.7); Neutrophils Percent Auto 84.4 % (45.5-73.1); Platelet Count Result 209 k/mm3 (150-375); Red Cell Distribution Width 12.9 % (11.5-14.5)
[2024-06-17] MEDS: hydrALAZINE HCL 20 MG/ML VIAL 10 MG IV PUSH (12:41)
[2024-06-17 12:54] LABS: Alanine Aminotransferase 25 U/L (6-35); Albumin Level 4.2 g/dL (3.5-5.1); Alkaline Phosphatase 55 U/L (38-126); Anion Gap 15 mmol/L (4-12); Aspartate Amino Transferase 26 U/L (14-36); Bilirubin,Total 1.8 mg/dL (0.2-1.3); Blood Urea Nitrogen 18 mg/dL (7-17); Calcium 8.9 mg/dL (8.4-10.2); Carbon Dioxide 18 mmol/L (22-30); Chloride 90 mmol/L (98-107); Estimated CRCL calculation 47 ml/min; Estimated Glomerular Filt Rate > 60; Glucose 161 mg/dL (65-110); Potassium 3.8 mmol/L (3.4-5.0); Sodium 123 mmol/L (137-145)
[2024-06-17 13:01] VITALS: BP 144/78; PULSE 72; RESP 18; O2SAT 99
--- NOTE | 2024-06-17 13:09 | PC.NURSE ---
entered room to redraw blue top tube that was rejected. per RN En and EDP Figueroa hold off on redraw for now due to patient being transferred.
--- NOTE | 2024-06-17 13:30 | PC.NURSE ---
per EDP Figueroa and RN En, blue tube redraw not needed at this time due to patient being transferred
[2024-06-17 14:15] LABS: Add Urine Microscopic? YES; Appearance Urine Clear (Clear); Bacteria Urine None Seen /hpf; Bilirubin Urine Negative (Negative); Blood Urine Negative (Negative); Color Urine Yellow (Yellow); Glucose Urine UA Negative (Negative); Ketones Urine Negative (Negative); Leukocyte Esterase Ur 1+ LEU/UL (Negative); Need Manual Microscopic Reviewed; Nitrate Urine Negative (Negative); Non Pathogenic Casts 0-2; Protein Urine Trace mg/dL (Negative); RBC Urine 0-2 /hpf (0-2); Specific Grav Ur 1.015 (1.001-1.035); Squamous Epithelial Cell Urine None Seen /hpf (Few); WBC Urine 0-5 /hpf (0-3); pH Urine 6.5 (5.0-9.0)
[2024-06-17 15:48] VITALS: BP 183/98; PULSE 80
[2024-06-17] MEDS: niCARdipine 20 MG/200 ML 20 MG/200 ML BAG 50 MG IV CONT (15:48)
[2024-06-17 15:53] VITALS: BP 170/101; PULSE 84; RESP 19; O2SAT 95
[2024-06-17 15:56] VITALS: BP 173/83; PULSE 89
[2024-06-17 16:08] VITALS: BP 159/84; PULSE 86; RESP 19; O2SAT 96
== END 2024-06-17 16:19 | disposition short-term general hospital (02) ==
LOC: ANHED 11:52
PROVIDERS: Emergency Provider Emergency Medicine; PCP Nurse Practitioner Family
DX: I60.9 Nontraumatic subarachnoid hemorrhage, unspecified (principal); W18.30XA Fall on same level, unspecified, initial encounter; I48.91 Unspecified atrial fibrillation; E78.5 Hyperlipidemia, unspecified; K21.9 Gastro-esophageal reflux disease without esophagitis; I10 Essential (primary) hypertension
CPT/HCPCS: 36415; 70450; 80053; 81001; 85025; 87086; 96374; 96375; 99284; J0360; J2404